=== PATIENT | female | born 1985 | race Two or more races ===

== ENCOUNTER 2025-04-21 15:33 | Emergency (ER) | payer OTHER, MEDICAID ==
--- NOTE | 2025-04-21 16:42 | ED.PDOC ---
History of Present Illness HPI Comments 35-year-old female brought into the emergency department by caregiver from the facility she states it. Patient has a history of epilepsy and seizures. Patient is unable to walk brought in a wheelchair with foam helmet on. Caregiver states that patient has been pushed up the ramp into the facility when she started rolling back and fell back falling back hitting her head. Was not wearing a helmet. No loss of consciousness. They noticed blood in the back of her head. No seizures recently. Chief Complaint: Fall Injury Time Seen by MD: 16:04 Allergies: Coded Allergies: NO KNOWN ALLERGIES (Unverified , 04/21/25) Mode of Arrival: Wheelchair Past Medical History PAST MEDICAL HISTORY: Seizures Constitutional: denies: chills, diaphoresis, fatigue, fever, malaise, sweats, weakness, others EENTM: denies: blurred vision, double vision, ear bleeding, ear discharge, ear drainage, ear pain, ear ringing, eye pain, eye redness, hearing loss, mouth pain, mouth swelling, nasal discharge, nose bleeding, nose congestion, nose pain, photophobia, tearing, throat pain, throat swelling, voice changes, others Respiratory: denies: cough, hemoptysis, orthopnea, SOB at rest, shortness of breath, SOB with excertion, stridor, wheezing, others Cardiovascular: denies: chest pain, dizzy spells, diaphoresis, Dyspnea on exertion, edema, irregular heart beat, left arm pain, lightheadedness, palpitations, PND, syncope, others Gastrointestinal: denies: abdomen distended, abdominal pain, blood streaked bowels, constipated, diarrhea, dysphagia, difficulty swallowing, hematemesis, melena, nausea, poor appetite, poor fluid intake, rectal bleeding, rectal pain, vomiting, others Genitourinary: denies: abnormal vagina bleeding, burning, dyspareunia, dysuria, flank pain, frequency, hematuria, incontinence, pain, , vagina discharge, urgency, others Neurological: denies: dizziness, fainting, headache, left sided numbness, left sided weakness, numbness, paresthesia, pre-existing deficit, right sided numbness, right sided weakness, seizure, speech problems, tingling, tremors, weakness, others Musculoskeletal: denies: back pain, gout, joint pain, joint swelling, muscle pain, muscle stiffness, neck pain, others Integumetry: reports: wounds; denies: bruises, change in color, change in hair/nails, dryness, laceration, lumps, rash, others Physical Exam General Appearance: No Apparent Distress, Normal HEENT: Normal ENT Inspection, Pharynx Normal, TMs Normal Neck: Full Range of Motion, Non-Tender, Normal, Normal Inspection Respiratory: Chest Non-Tender, Lungs Clear, No Accessory Muscle Use, No Respiratory Distress, Normal Breath Sounds Cardiovascular: No Edema, No JVD, No Murmur, No Gallop, Normal Peripheral Pulses, Regular Rate/Rhythm Breast Exam: Deferred Gastrointestinal: No Organomegaly, Non Tender, No Pulsatile Mass, Normal Bowel Sounds, Soft Genitalia: Deferred Pelvic: Deferred Rectal: Deferred Extremities: NOT DONE Musculoskeletal : Location: NOT DONE Apperance: Normal Neurologic: 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 No gapping.) Lymphatic: No Adenopathy Was a procedure done? Was a procedure done?: No Differential Dx Considerations may include: Closed head injury, scalp laceration X-Ray, Labs, Meds, VS Vital Signs Date Time Temp Pulse Resp B/P (MAP) Pulse Ox O2 Delivery O2 Flow Rate FiO2 04/21/25 16:04 98.8 84 18 102/61 (75) 95 98.8 X-Ray, Labs, Meds, VS Comment Wound was cleansed with normal saline. Should heal well with secondary intentions Imaging: X-rays and CT scans were reviewed and interpreted by this provider, imaging shows no fractures and no pathological disease. Pending radiology review. Laboratory: Labs reviewed and interpreted by this provider. No significant abnormalities noted. Patient has prior medical visits reviewed. Med reconciliation performed Vital signs reviewed Time of 1ST Reevaluation: 16:42 Reevaluation 1ST: Improved Patient Education/Counseling: Diagnosis, Treatment, Need For Follow Up (Follow up with PCP next available appointment) Family Education/Counseling: Diagnosis SEPSIS Sepsis Screen Date sepsis recognized/suspect: Apr 21, 2025 Time Sepsis recognized/suspect: 1605 Recent Procedure: No On Antibiotic Therapy: No Respiratory Rate >20: No Heart Rate >90: No Temp<36 C (96.8 F) or >38.3 C: No SBP <90 or MAP <65 mmHG: No New Acute Mental Status Change: No Is the patient on CPAP, BIPAP,: No Physician Orders Head Without Contrast (04/21/25 16:19) Vital Signs Date Time Temp Pulse Resp B/P (MAP) Pulse Ox O2 Delivery O2 Flow Rate FiO2 04/21/25 16:04 98.8 84 18 102/61 (75) 95 98.8 Departure 1 Departure Time of Disposition: 16:42 Impression: Primary Impression: Closed head injury Qualified Codes: S09.90XA - Unspecified injury of head, initial encounter Disposition: 01 HOME / SELF CARE / HOMELESS Condition: Stable Discharged With: Self Critical Care Note Critical Care Time?: No Stability Stability form required: No Heart Score Heart Score: Heart Score Response (Comments) Value History N/A 0 EKG N/A 0 Age N/A 0 Risk Factors N/A 0 Troponin N/A 0 Total 0 NICOLE PARMAR ZOOLOGY TEACHER Apr 21, 2025 16:42
--- NOTE | 2025-04-21 16:53 | DVH ---
EXAM: CT HEAD WITHOUT CONTRAST INDICATION: fall TECHNIQUE: CT of the head without intravenous contrast. Radiation Dose Information: CT Dose: CTDI volume is 59.69 mGy. Dose-length product is 1056.76 mGy*cm The dose indicators for CT are the volume Computed Tomography (CT) Dose Index (CTDIvol) and the Dose Length Product (DLP), and are measured in units of mGy and mGy-cm, respectively. These indicators are not patient dose, but values generated from the CT scanner acquisition factors. The report includes radiation exposure data for exposures received during this examination. COMPARISON: None FINDINGS: There is no evidence of acute intracranial hemorrhage, extra-axial collection, mass effect, midline s hift, herniation or hydrocephalus. The ventricles, sulci and cisterns are age appropriate. The saldaña-white differentiation is intact. Patchy periventricular and subcortical white matter hypoattenuation is nonspecific but may be related to small vessel ischemic disease. The visualized paranasal sinuses and mastoid air cells are clear. Scalp edema posteriorly on the right. No underlying skull fracture or intracranial hemorrhage. IMPRESSION: 1. No acute intracranial abnormality. HS:Y
[2025-04-21 17:30] VITALS: BP 102/61; PULSE 84; RESP 18; TEMP 98.8; O2SAT 95
== END 2025-04-21 17:32 | disposition home or self-care (01) ==
LOC: ER 15:33
DX: S09.8XXA Other specified injuries of head, initial encounter (principal); W18.39XA Other fall on same level, initial encounter; Y93.89 Activity, other specified; Y92.89 Other specified places as the place of occurrence of the external cause; Y99.8 Other external cause status
CPT/HCPCS: 70450

== ENCOUNTER 2025-05-01 12:06 | Emergency (ER) | payer OTHER, MEDICAID ==
[~2025-05-01] VITALS: Ht 167.6 cm; Wt 91.0 kg
--- NOTE | 2025-05-01 12:39 | ED.PDOC ---
Musculoskeletal HPI Comments A 39 YEAR OLD FEMALE PRESENTS TO THE ED WITH COMPLAINT OF LEFT HAND PAIN S/P FALL. PATIENT STATES SHE ACCIDENTALLY FELL TODAY AND INJURED HER LEFT HAND. PATIENT REPORTS SHE IS NOW EXPERIENCING LEFT HAND PAIN WITH MILD SWELLING. PATIENT NOTES SHE HAS A HISTORY OF A DEFORMITY TO HER LEFT FIFTH FINGER DUE TO A PREVIOUS INJURY THAT OCCURRED IN THE PAST. PATIENT DENIES FEVER, CHILLS, SHORTNESS OF BREATH, CHEST PAIN, ABDOMINAL PAIN, NAUSEA, VOMITING, HEADACHE, OR OTHER COMPLAINTS. NO OTHER SYMPTOMS OR MODIFYING FACTORS AT THIS TIME. PATIENT IS ALERT, ORIENTED X 4, AND HAS STEADY GAIT. Chief Complaint: Upper Extremity Time Seen by MD: 12:09 Reviewed Notes: Nurses Notes, Medications, Allergies Allergies: Coded Allergies: NO KNOWN ALLERGIES (Unverified , 04/21/25) Home Meds Active Scripts Ibuprofen (Ibuprofen) 800 Mg Tab, 1 TAB PO TID, #30 TAB Prov:CHANDANA VELARDE 05/01/25 Information Source: Patient Mode of Arrival: Ambulatory Location: Left Extremity Location: Finger 4, Hand Timing: Hours Prehospital treatment: None Severity: Moderate Able to Move Extremity: Yes Bear Weight: Fully Pain: Moderate Mechanism: Blunt Trauma Circumstances: Fall Onset of Symptoms: After Trauma Symptoms: Pain DVT Risk Factors: NONE Last Tetanus: UTD, Unknown Associated signs and symptoms: Hand pain Past Medical History PAST MEDICAL HISTORY: Seizures Surgical History: Denies all surgeries ATOMIC FUEL ASSEMBLER 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: No 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 ATOMIC FUEL ASSEMBLER History Family History Family History: Reviewed,noncontributory to illness Social History Smoker: Non-Smoker Alcohol: Denies ETOH Use Drugs: Denies Drug Use Lives In: Home Constitutional: denies: chills, diaphoresis, fatigue, fever, malaise, sweats, weakness, others EENTM: denies: blurred vision, double vision, ear bleeding, ear discharge, ear drainage, ear pain, ear ringing, eye pain, eye redness, hearing loss, mouth pain, mouth swelling, nasal discharge, nose bleeding, nose congestion, nose pain, photophobia, tearing, throat pain, throat swelling, voice changes, others Respiratory: denies: cough, hemoptysis, orthopnea, SOB at rest, shortness of breath, SOB with excertion, stridor, wheezing, others Cardiovascular: denies: chest pain, dizzy spells, diaphoresis, Dyspnea on exertion, edema, irregular heart beat, left arm pain, lightheadedness, palpitations, PND, syncope, others Gastrointestinal: denies: abdomen distended, abdominal pain, blood streaked bowels, constipated, diarrhea, dysphagia, difficulty swallowing, hematemesis, melena, nausea, poor appetite, poor fluid intake, rectal bleeding, rectal pain, vomiting, others Genitourinary: denies: abnormal vagina bleeding, burning, dyspareunia, dysuria, flank pain, frequency, hematuria, incontinence, pain, , vagina discharge, urgency, others Neurological: denies: dizziness, fainting, headache, left sided numbness, left sided weakness, numbness, paresthesia, pre-existing deficit, right sided numbness, right sided weakness, seizure, speech problems, tingling, tremors, weakness, others Musculoskeletal: reports: joint pain, joint swelling, others (LEFT HAND PAIN); denies: back pain, gout, muscle pain, muscle stiffness, neck pain Integumetry: denies: bruises, change in color, change in hair/nails, dryness, l aceration, lesions, lumps, rash, wounds, others Allergic/Immunocompromised: denies: Difficulty Healing, Frequent Infections, Hives, Itching, others Hematologic/Lymphatic: denies: anemia, blood clots, easy bleeding, easy bruising, swollen glands, others Endocrine: denies: excessive hunger, excessive sweating, excessive thirst, excessive urination, flushing, intolerance to cold, intolerance to heat, unexplained weight gain, unexplained weight loss, others Psychiatric: denies: anxiety, bipolar disorder, depression, hopeless, panic disorder, schizophrenia, sleepless, suicidal, others All Other Systems: Reviewed and Negative Physical Exam General Appearance: No Apparent Distress, Obese HEENT: Normal ENT Inspection, PERRL/EOMI, Pharynx Normal, TMs Normal Neck: Full Range of Motion, Non-Tender, Normal, Normal Inspection Respiratory: Chest Non-Tender, Lungs Clear, No Accessory Muscle Use, No Respiratory Distress, Normal Breath Sounds Cardiovascular: No Edema, No JVD, No Murmur, No Gallop, Normal Peripheral Pulses, Regular Rate/Rhythm Breast Exam: Deferred Gastrointestinal: No Organomegaly, Non Tender, No Pulsatile Mass, Normal Bowel Sounds, Soft Genitalia: Deferred Pelvic: Deferred Rectal: Deferred Extremities: No calf tenderness, Normal capillary refill, Normal range of motion, No pedal edema, Tender (AND MILD SWELLING LEFT 4TH FINGER, NO BONY TENDERNESS AND DEFORMITY, NORMAL ROM. 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 Was a procedure done?: No Differential Diagnosis EXT Differential Diagnosis: Fracture, Sprain, Dislocation, Contusion, Strain, Bursitis X-Ray, Labs, Meds, VS Vital Signs Date Time Temp Pulse Resp B/P (MAP) Pulse Ox O2 Delivery O2 Flow Rate FiO2 05/01/25 13:04 97.5 80 18 111/72 (85) 98 97.5 CLINICAL INDICATION: INJURY TECHNIQUE: 4 radiographic views of the left hand were obtained. Comparison: None FINDINGS/IMPRESSION: There is bony prominence of the palmar base of the 4th digit middle phalanx with subtle linear lucency. Recommend correlation with point tenderness for minimally displaced fracture. Otherwise, no evidence of acute traumatic fractures or dislocations. ATED BY: VANDANA WOODWARD DO DICTATED DATE/TIME: 05/01/251318 SIGNED BY: VANDANA WOODWARD DO SIGNED DATE/TIME: 05/01/251318 CC: X-Ray, Labs, Meds, VS Comment EXTERNAL MEDICAL RECORDS REVIEWED: [NONE] INDEPENDENT HISTORIANS: [NONE] SOCIAL DETERMINANTS OF HEALTH: [NONE] LABS ORDERED: NONE REVIEWED AND INTERPRETED RESULTS: NONE IMAGING ORDERED: XR HAND LT: [INTERPRETED BY ME. NO ACUTE FINDINGS. NO FRACTURES OR DISLOCATION. PENDING RADIOLOGIST REPORT.] TREATMENTS ORDERED: FROG SPLINT APPLIED TO PATIENT'S LEFT 4TH FINGER. PROCEDURES PERFORMED: NONE CRITICAL CARE TIME: NONE I HAVE DISCUSSED THE PATIENT WITH THE ATTENDING PHYSICIAN DR. CUEVAS AND HE AGREES WITH THE PATIENT'S PLAN OF CARE AND DISPOSITION. BASED ON HISTORY OF PRESENT ILLNESS, AND PHYSICAL EXAM, PATIENT WILL BE DISC HARGED HOME. DISCUSSED PLAN FOR DISCHARGE HOME WITH RX [IBUPROFEN 800MG]. MEDICATION WARNINGS GIVEN. SHARED DECISION MAKING: PATIENT INSTRUCTED TO FOLLOW UP WITH PRIMARY CARE PROVIDER IN 1-2 DAYS FOR RE-EVALUATION OF SYMPTOMS. PATIENT VERBALIZES UNDERST ANDING TO RETURN TO ED FOR NEW OR WORSENING SYMPTOMS OR IF FOLLOW UP WITH PCP CANNOT BE OBTAINED. PATIENT FEELS COMFORTABLE GOING HOME AT THIS TIME. ALL QUESTIONS ADDRESSED AT TIME OF DISCHARGE. Images Reviewed?: Images reviewed and evaluated by me Time of 1ST Reevaluation: 13:44 Reevaluation 1ST: Improved Patient Education/Counseling: Diagnosis, Treatment, Need For Follow Up Family Education/Counseling: Diagnosis, Treatment, Need For Follow Up Medical Screening: No EMC Exist At This Time Departure 1 Departure Time of Disposition: 13:44 Impression: Primary Impression: Sprain of left ring finger Qualified Codes: S63.615A - Unspecified sprain of left ring finger, initial encounter Additional Impression: Status post fall Disposition: 01 HOME / SELF CARE / HOMELESS Condition: Stable Additional Instructions: FOLLOW-UP WITH PCP IN 1 TO 2 DAYS. TAKE MEDICATIONS PRESCRIBED. RETURN TO ED FOR ANY NEW OR WORSENING SYMPTOMS. e-Prescriptions Ibuprofen (Ibuprofen) 800 Mg Tab 1 TAB PO TID, #30 TAB Prov: CHANDANA VELARDE 05/01/25 Discharged With: Self, Collection Administrator Critical Care Note Critical Care Time?: No Stability Stability form required: No I personally scribed for CHANDANA VELARDE ([email or web address]) on 05/01/25 at 12:39. Electronically submitted by Francisco Zamora ([employer]). I personally scribed for CHANDANA VELARDE ([email or web address]) on 05/01/25 at 13:27. Electronically submitted by Francisco Zamora ([employer]). I personally scribed for CHANDANA VELARDE ([email or web address]) on 05/01/25 at 13:29. Electronically submitted by Francisco Zamora ([employer]). I personally scribed for CHANDANA VELARDE ([email or web address]) on 05/01/25 at 13:39. Electronically submitted by Francisco Zamora ([employer]). I personally scribed for CHANDANA VELARDE ([email or web address]) on 05/01/25 at 13:41. Electronically submitted by Francisco Zamora ([employer]). CHANDANA VELARDE May 01, 2025 12:39
[2025-05-01 13:04] VITALS: BP 111/72; PULSE 80; RESP 18; TEMP 97.5; O2SAT 98
--- NOTE | 2025-05-01 13:22 | DVH ---
CLINICAL INDICATION: INJURY TECHNIQUE: 4 radiographic views of the left hand were obtained. Comparison: None FINDINGS/IMPRESSION: There is bony prominence of the palmar base of the 4th digit middle phalanx with subtle linear lucenc y. Recommend correlation with point tenderness for minimally displaced fracture. Otherwise, no evid ence of acute traumatic fractures or dislocations.
[2025-05-01] MEDS ORDERED: IBUP-1456 PO (13:41)
== END 2025-05-01 14:13 | disposition home or self-care (01) ==
LOC: ER 12:06
DX: S63.695A Other sprain of left ring finger, initial encounter (principal); W18.39XA Other fall on same level, initial encounter; Y93.89 Activity, other specified; Y92.89 Other specified places as the place of occurrence of the external cause; Y99.8 Other external cause status
CPT/HCPCS: 29130; 73130

== ENCOUNTER 2025-05-07 17:45 | Inpatient (IN) | payer OTHER, MEDICAID ==
[~2025-05-07] VITALS: Ht 157.5 cm; Wt 92.1 kg
[~2025-05-07 17:45] MED LIST: IBUP-1456 PO
--- NOTE | 2025-05-07 19:20 | ED.PDOC ---
HPI (NEURO) HPI Comments 39 year old female with a Hx of Seizures, Bipolar, and Hypothyroidism was BIBA for the c/c of a Seizure. Pt is noted to have experienced 4x witnessed Seizures today at a Psychiatric facility, pt is noted to be wearing a helmet at this time, and is alert and is answering questions appropriately to baseline. Pt is noted to be on multiple different medications for Seizures, including Keppra. Pt denies any HESTER, ABD pain, Photophobia, Dizziness, Blurry Vision, or any other associates symptoms or Modifiers at this time. Chief Complaint: Seizure Time Seen by MD: 19:13 Reviewed Notes: Nurses Notes, President Practicing Urologist Notes, Medications, Allergies Information Source: Patient, Emergency Med Personnel Mode of Arrival: EMS Severity: Moderate Dizziness/Weakness Severity: Does not affect activitie Headache Severity: Mild Timing: Hours Duration: Since onset, Hours Prehospital treatment: None Seizure Quality: Shaking Headache Location: Generalized Weakness Location: Generalized Numbness Location: Generalized Seizure Location: Generalized Onset: At rest Circumstances: Spontaneous Symptoms: None Before: Normal During: Awake After: Normal Mentation History of: None Modifying factors: Nothing Associated Signs and Symptoms: None Past Medical History PAST MEDICAL HISTORY: Seizures Past Medical History (Other): bipolar, hypothyroid Surgical History: Denies all surgeries BRIQUETTE OPERATOR History: No Pertinent BRIQUETTE OPERATOR History Family History Family History: Reviewed,noncontributory to illness Social History Smoker: Non-Smoker Alcohol: Denies ETOH Use Drugs: Denies Drug Use Lives In: Home All Other Systems: Reviewed and Negative (Comprehensive systems review obtained and negative except for what is stated in the HPI.) Physical Exam General Appearance: No Apparent Distress HEENT: Other (Pupils and face symmetric. Moist mucous membranes.) Neck: Full Range of Motion, Non-Tender, Normal Inspection, Supple Respiratory: Lungs Clear, No Accessory Muscle Use, No Respiratory Distress, Normal Breath Sounds Cardiovascular: No Edema, No JVD, Regular Rate/Rhythm Breast Exam: Deferred Gastrointestinal: Non Tender, Soft Genitalia: Deferred Pelvic: Deferred Rectal: Deferred Extremities: Normal inspection, Normal range of motion, Non-tender, No pedal edema Neurologic: Alert, Other (Appropriately conversant. Moves all days. No gross focal deficit.) Cerebellar Function: NOT DONE Reflexes: NOT DONE Skin: Dry, Normal Color, Warm Lymphatic: NOT DONE Was a procedure done? Was a procedure done?: No Differential Diagnosis (SZ) Seizure: Psychogenic Seizure, Alcohol Withdrawl, Closed Head Injury, CVA/TIA, Drug Ingestion, Hypoglycemia, Hyponatremia, Idiopathic, Meningitis, Syncope, Encephalopathy, Epilepsy-Break Through, Epilepsy-Status CVA: Drug Overdose General Weakness: Dehydration, Electrolyte imbalance X-Ray, Labs, Meds, VS Vital Signs Date Time Temp Pulse Resp B/P (MAP) Pulse Ox O2 Delivery O2 Flow Rate FiO2 05/07/25 23:25 Room Air* 0 21 05/07/25 22:30 78 20 101/44 (63) 95 05/07/25 20:30 87 20 92/53 (66) 95 05/07/25 18:30 Room Air* 0 21 05/07/25 18:30 98.0 85 20 118/75 (89) 95 98.0 05/07/25 17:53 98.7 111 16 139/111 98 98.7 Lab Test 05/07/25 22:55 05/07/25 19:13 Range/Units Urine Color Light-yellow Yellow Urine Clarity Clear Clear Urine pH 7.5 5.0-9.0 Urine Specific [place] 1.020 1.001-1.035 Urine Protein Negative Negative Urine Ketones Negative Negative Urine Blood Trace H Negative /uL Urine Nitrite Negative Negative Urine Bilirubin Negative Negative Urine Urobilinogen Normal Negative mg/dL Urine Leukocyte Esterase Negative Negative /uL Urine RBC 2 0 - 4 /hpf Urine Microscopic WBC < 1 0-5 /HPF Urine Squamous Epithelial Cells Few <5 /hpf Urine Bacteria Few H None Seen /hpf Urine Hyaline Casts Few 0 - 2 /lpf Urine Mucus Few None Seen Urine Glucose Normal Normal mg/dL Urine Test Negative Negative White Blood Count 7.9 4.4-10.8 10^3/uL Red Blood Count 4.57 4.0-5.20 10^6/uL Hemoglobin 13.5 12.2-16.2 g/dL Hematocrit 40.3 36.0-46.0 % Mean Corpuscular Volume 88.1 80.0-100.0 fL Mean Corpuscular Hemoglobin 29.5 28.0-32.0 pg Mean Corpuscular Hemoglobin Concent 33.5 32.0-36.0 g/dL Red Cell Distribution Width 15.2 H 11.8-14.3 % Platelet Count 201 140-450 10^3/uL Mean Platelet Volume 8.1 6.9-10.8 fL Neutrophils (%) (Auto) 68.8 37.0-80.0 % Lymphocytes (%) (Auto) 23.2 10.0-50.0 % Monocytes (%) (Auto) 7.7 0.0-12.0 % Eosinophils (%) (Auto) 0.0 0.0-7.0 % Basophils (%) (Auto) 0.3 0.0-2.0 % Neutrophils # (Auto) 5.4 1.6-8.6 10 ^3/uL Lymphocytes # (Auto) 1.8 0.4-5.4 10 ^3/uL Monocytes # (Auto) 0.6 0-1.3 10 ^3/uL Eosinophils # (Auto) 0 0-0.8 10 ^3/uL Basophils # (Auto) 0 0-0.2 10 ^3/uL Nucleated Red Blood Cells 0.1 % Sodium Level 142 136-145 mmol/L Potassium Level 3.7 3.5-5.1 mmol/L Chloride Level 106 98-107 mmol/L Carbon Dioxide Level 27 20-31 mmol/L Anion Gap 9 5-15 Blood Urea Nitrogen 13 9-23 mg/dL Creatinine 0.69 0.550-1.02 mg/dL Glomerular Filtration Rate Calc 113 >90 mL/min BUN/Creatinine Ratio 18.8 10.0-20.0 Serum Glucose 107 H 74-106 mg/dL Calcium Level 9.3 8.7-10.4 mg/dL Levetiracetam Level Pending X-Ray, Labs, Meds, VS Comment 39-year-old female with a history of epilepsy on multiple antiseizure meds including levetiracetam, hypothyroidism and bipolar disorder presenting from her facility with 4 seizures today Initial vitals remarkable for heart rate 111, BP 139/111 Exam unremarkable Rhythm strip independently interpreted by me: Sinus rhythm, rate 85, no ectopy. Chest x-ray pending CBC and basic metabolic panel unremarkable, levetiracetam level and UA pending Patient was placed on seizure precautions. No immediate treatment was indicated in the ED. Plan is to admit the patient for neurology evaluation. Time of 1ST Reevaluation: 19:44 Reevaluation 1ST: Unchanged Patient Education/Counseling: Diagnosis, Treatment Family Education/Counseling: No Family Present Departure 1 Departure Time of Disposition: 21:30 Impression: Primary Impression: Breakthrough seizure Disposition: ADMITTED INPATIENT Admit to: Tele Condition: Guarded Critical Care Note Critical Care Time?: No Stability Stability form required: No Heart Score Heart Score: Heart Score Response (Comments) Value History N/A 0 EKG N/A 0 Age N/A 0 Risk Factors N/A 0 Troponin N/A 0 Total 0 I personally scribed for BOB ADKINS MD ([email or web address]) on 05/07/25 at 19:20. Electronically submitted by Payam Delacruz ([email or web address]). BOB ADKINS MD May 07, 2025 19:20
[2025-05-07 19:35] LABS: Hematocrit 40.3 % (36.0-46.0); Hemoglobin 13.5 g/dL (12.2-16.2); Mean Corpuscular Hemoglobin 29.5 pg (28.0-32.0); Mean Corpuscular Volume 88.1 fL (80.0-100.0); Nucleated Red Blood Cells % 0.1 %
[2025-05-07 19:39] LABS: Chloride 106 mmol/L (98-107); Potassium 3.7 mmol/L (3.5-5.1); Sodium 142 mmol/L (136-145)
[2025-05-07 19:40] LABS: Anion Gap 9 (5-15); Carbon Dioxide 27 mmol/L (20-31)
[2025-05-07 19:41] LABS: Calcium 9.3 mg/dL (8.7-10.4)
[2025-05-07 19:46] LABS: Glucose 107 mg/dL (74-106)
[2025-05-07 20:08] LABS: BUN/Creatinine Ratio 18.8 (10.0-20.0); Blood Urea Nitrogen 13 mg/dL (9-23)
[2025-05-07] MEDS ORDERED: HYDROcodone-ACET 5/325MG TAB PO PRN (21:30)
[2025-05-07] MEDS ORDERED: ACETAMINOPHEN 325 MG TAB PO PRN (21:30)
[2025-05-07] MEDS ORDERED: ONDANSETRON HCL 4 MG/2 ML VIAL IV PRN (21:30)
[2025-05-07] MEDS ORDERED: DOCUSATE SOD 100 MG CAP PO PRN (21:30)
[2025-05-07 23:34] LABS: Urine Protein, UAD Negative (Negative)
--- NOTE | 2025-05-07 23:34 | DVHHP2 ---
History of Present Illness Reason for Visit: Seizure disorder History of Present Illness The patient is a 39 years old female with past medical history of seizures, bipolar disorder, and hypothyroidism who presented to [facility] ED for evaluation of seizures activity. Patient is noted to have experience witnessed seizure today at a psychiatric facility, associated with dizziness. Patient was seen and evaluated in the ED, laboratory data shows WBC 7.9, platelets 201, sodium 142, potassium 3.7, BUN 13, creatinine 0.69, glucose 107, calcium 9.3, blood pressure 118/75, heart rate 85, temperature 98.0 F, O2 saturation 95% on room air. Chest x-ray show no acute cardiopulmonary disease. Patient was started on IV Keppra, please see medication orders section in the computer. On my assessment, patient denied chest pain, no headache, no dizziness or seizures activities at this moment, no blurry vision, no diaphoresis, no shortness of breath, no nausea, no vomiting, no fever, no chills. Patient was admitted for further evaluation and medical management. Past Medical History Seizures, Bipolar, Hypothyroid Past Surgical History VNS shunt Family History Reviewed, noncontributory to the management of this case. Past Social History The patient lives at home, denies smoking, alcohol or illicit drugs abuse. Review of Systems Constitutional: No: Fever, Chills, Sweats, Weakness, Malaise, Other Eyes: No: Pain, Vision change, Conjunctivae inflammation, Eyelid inflammation, Other, Redness ENT: No: Ear pain, Ear discharge, Nose pain, Nose discharge, Nose congestion, Mouth pain, Mouth swelling, Throat pain, Throat swelling, Other Respiratory: No: Cough, Dry, Shortness of breath, SOB with excertion, Wheezing, Hemoptysis, Pleuritic Pain, Sputum, Wheezing, Other Cardiovascular: Other (VNS shunt); No: Chest Pain, Palpitations, Orthopnea, Paroxysmal Noc. Dyspnea, Edema, Lt Headedness Gastrointestinal: No: Nausea, Vomiting, Abdominal Pain, Diarrhea, Constipation, Melena, Hematochezia, Other Genitourinary: No Dysuria, No Frequency, No Incontinence, No Hematuria, No Retention, No Other Musculoskeletal: No: other, neck pain, shoulder pain, arm pain, back pain, hand pain, leg pain, foot pain Neurological: Seizures, Other (Dizziness); No: Weakness, Numbness, Incoordination, Change in speech, Confusion Allergies: Coded Allergies: NO KNOWN ALLERGIES (Unverified , 04/21/25) Medications Current Medications Medications Dose Ordered Sig/Chayo Route Start Time Stop Time Status Last Admin Dose Admin Levetiracetam 100 ml @ 400 mls/hr BID IV 05/07/25 22:00 Levothyroxine Sodium 75 mcg QAM@0600 PO 05/08/25 06:00 Sertraline HCl 100 mg DAILY PO 05/08/25 10:00 Trazodone HCl 100 mg HS PO 05/07/25 22:00 Sodium Chloride 1,000 ml @ 60 mls/hr [id number] IV 05/07/25 21:30 Acetaminophen/ Hydrocodone Bitart 1 tab Q4HP PRN PO 05/07/25 21:30 Ondansetron HCl 4 mg Q4HP PRN IV 05/07/25 21:30 Docusate Sodium 100 mg BIDPRN PRN PO 05/07/25 21:30 Acetaminophen 650 mg Q6HP PRN PO 05/07/25 21:30 Exam Vital Signs Vital Signs Date Time Temp Pulse Resp B/P (MAP) Pulse Ox O2 Delivery O2 Flow Rate FiO2 05/07/25 22:30 78 20 101/44 (63) 95 05/07/25 18:30 Room Air* 0 21 05/07/25 18:30 98.0 98.0 General Appearance: Alert, Oriented X3, Cooperative, No acute distress HEENT: Atraumatic, PERRLA, Mucous membr. moist/pink Respiratory: Normal air movement Cardiovascular: Regular rate, Normal S1, Normal S2, No murmurs Abdominal: Normal bowel sounds, Soft, No tenderness, No hepatospenomegaly, No masses Extremities: No clubbing, No cyanosis, No edema, Normal pulses, No te nderness/swelling Skin: No rashes, No breakdown, No significant lesion Neuro: Normal speech, Normal tone, Sensation intact, Cranial nerves 3-12 NL, Reflexes 2+ Psych/Mental Status: Mental status NL, Mood NL Labs/Xrays Labs Test 05/07/25 22:55 05/07/25 19:13 Range/Units Urine Test Negative Negative White Blood Count 7.9 4.4-10.8 10^3/uL Red Blood Count 4.57 4.0-5.20 10^6/uL Hemoglobin 13.5 12.2-16.2 g/dL Hematocrit 40.3 36.0-46.0 % Mean Corpuscular Volume 88.1 80.0-100.0 fL Mean Corpuscular Hemoglobin 29.5 28.0-32.0 pg Mean Corpuscular Hemoglobin Concent 33.5 32.0-36.0 g/dL Red Cell Distribution Width 15.2 H 11.8-14.3 % Platelet Count 201 140-450 10^3/uL Mean Platelet Volume 8.1 6.9-10.8 fL Neutrophils (%) (Auto) 68.8 37.0-80.0 % Lymphocytes (%) (Auto) 23.2 10.0-50.0 % Monocytes (%) (Auto) 7.7 0.0-12.0 % Eosinophils (%) (Auto) 0.0 0.0-7.0 % Basophils (%) (Auto) 0.3 0.0-2.0 % Neutrophils # (Auto) 5.4 1.6-8.6 10 ^3/uL Lymphocytes # (Auto) 1.8 0.4-5.4 10 ^3/uL Monocytes # (Auto) 0.6 0-1.3 10 ^3/uL Eosinophils # (Auto) 0 0-0.8 10 ^3/uL Basophils # (Auto) 0 0-0.2 10 ^3/uL Nucleated Red Blood Cells 0.1 % Sodium Level 142 136-145 mmol/L Potassium Level 3.7 3.5-5.1 mmol/L Chloride Level 106 98-107 mmol/L Carbon Dioxide Level 27 20-31 mmol/L Anion Gap 9 5-15 Blood Urea Nitrogen 13 9-23 mg/dL Creatinine 0.69 0.550-1.02 mg/dL Glomerular Filtration Rate Calc 113 >90 mL/min BUN/Creatinine Ratio 18.8 10.0-20.0 Serum Glucose 107 H 74-106 mg/dL Calcium Level 9.3 8.7-10.4 mg/dL PATIENT: HERLINDA WHEAT ACCT: [id number] UNIT: [id number] : 1985 LOC: OVERFLOW ROOM / BED: [id number] A AGE / SEX: 39 / F ADM STATUS: ADM IN SERVICE 00 ORDERING PHYSICIAN: BOB ADKINS MD PROCEDURE(s): CXR1 - CHEST XRAY 1 VIEW REASON: seizures ORDER NUMBER(s): [id number], ACCESSION NUMBER(s): [id number] CHEST RADIOGRAPH Indication: seizures Technique: Single frontal view of the chest was obtained Comparison: None FINDINGS: Lines and Tubes: Left implanted battery pack with lead coursing superiorly to the left neck. Lungs: No focal consolidation. Pleura: No effusion or pneumothorax. Cardiomediastinal contours: Unremarkable Bones: No acute osseous abnormality. IMPRESSION: 1. No acute cardiopulmonary disease. SEPSIS Sepsis Screen Date sepsis recognized/suspect: May 07, 2025 Time Sepsis recognized/suspect: 1749 Recent Procedure: No On Antibiotic Therapy: No Respiratory Rate >20: No Heart Rate >90: Yes Temp<36 C (96.8 F) or >38.3 C: No SBP <90 or MAP <65 mmHG: No New Acute Mental Status Change: No Is the patient on CPAP, BIPAP,: No Physician Orders Urinalysis (05/07/25 18:33) Electrocardigram (05/07/25 18:33) Seizure Precautions (05/07/25 ) Chest Xray 1 View (05/07/25 19:01) Levetiracetam (Keppra) (05/07/25 19:02) Levetiracetam 1000 Mg/100ml (Levetiracet (05/07/25 22:00) Levothyroxine Tablet (Synthroid Tablet) (05/08/25 06:00) Sertraline Hcl (Zoloft) (05/08/25 10:00) Trazodone Hcl (Desyrel) (05/07/25 22:00) Allergies (05/07/25 21:21) Code Status (05/07/25 21:21) Sodium Chloride 0.9% (05/07/25 21:30) Oxygen Per Hour (05/07/25 21:21) Hydrocodone-Acet 5/325mg Tab ([place] 5/32 (05/07/25 21:30) Ondansetron Hcl (Zofran) (05/07/25 21:30) Docusate Sodium Capsule (Colace Capsule) (05/07/25 21:30) Fall Risk Precautions In Place QSHIFT (05/07/25 21:21) Complete Blood Count (05/08/25 04:00) Comprehensive Metabolic Panel (05/08/25 04:00) Condition: Serious (05/07/25 21:21) Acetaminophen Tablet (Tylenol Tablet) (05/07/25 21:30) Maintain Bed Rest (05/07/25 21:21) Sequential Compression Device (05/07/25 ) Cardiac Diet-2gna,Lofat,Lochol (05/08/25 Breakfast) Admit (05/07/25 23:32) Nitroglycerin Sublingual (Ntrostat Subli (05/07/25 23:45) Morphine Sulfate Injection (05/07/25 23:45) Stat Ekg For Chest Pain (05/07/25 23:32) Notify Md Of Changes From Base (05/07/25 23:32) Pathologist For 24 Hours (05/07/25 23:32) Emergency Dysrhythmia Protocol (05/07/25 23:32) Rhythm Strips Once Every Shift (05/07/25 23:32) Oxygen By Nasal Cannula (05/07/25 23:32) Vital Signs Date Time Temp Pulse Resp B/P (MAP) Pulse Ox O2 Delivery O2 Flow Rate FiO2 05/07/25 22:30 78 20 101/44 (63) 95 05/07/25 20:30 87 20 92/53 (66) 95 05/07/25 18:30 Room Air* 0 21 05/07/25 18:30 98.0 85 20 118/75 (89) 95 98.0 05/07/25 17:53 98.7 111 16 139/111 98 98.7 Laboratory Tests Test 05/07/25 19:13 White Blood Count 7.9 10^3/uL (4.4-10.8) Assessment/Plan Assessment/Plan Breakthrough seizure Dizziness and giddiness Generalized weakness Plan 1. Admit to telemetry unit 2. Breathing treatment 3. Pain control management 4. Management of fluids and electrolytes 5. Consultation for Neurology 6. Diagnostic tests head CT 7. DVT prophylaxis on SCDs 8. Repeat labs CBC, CMP in a.m. 9. Continue with current medical management 10. Treatment plan discussed with patient and RN. Patient verbalized understanding. Plan discussed with: Patient, Other (RN) My Orders Orders - GERALDO OSORIO DNP Procedure Category Date Status Time Levetiracetam 1000 PHA 05/07/25 In Process Mg/100ml (Levetiracet 22:00 Levothyroxine Tablet PHA 05/08/25 In Process (Synthroid Tablet) 06:00 Sertraline Hcl PHA 05/08/25 In Process (Zoloft) 10:00 Trazodone Hcl PHA 05/07/25 In Process (Desyrel) 22:00 Allergies SPENCER 05/07/25 In Process 21:21 Code Status CODE 05/07/25 Transmitted 21:21 Sodium Chloride 0.9% PHA 05/07/25 In Process 21:30 Oxygen Per Hour RT 05/07/25 Transmitted 21:21 Hydrocodone-Acet PHA 05/07/25 In Process 5/325mg Tab ([place]on 21:30 Ondansetron Hcl PHA 05/07/25 In Process (Zofran) 21:30 Docusate Sodium PHA 05/07/25 In Process Capsule (Colace 21:30 Fall Risk Precautions SPENCER 05/07/[address] 21:21 Complete Blood Count LAB 05/08/25 Verified 04:00 Comprehensive LAB 05/08/25 Verified Metabolic Panel 04:00 Condition: Serious SPENCER 05/07/25 In Process 21:21 Acetaminophen Tablet PHA 05/07/25 In Process (Tylenol Tablet) 21:30 Maintain Bed Rest SPENCER 05/07/25 In Process 21:21 Sequential SPENCER 05/07/25 In Process Compression Device Cardiac DIET 05/08/25 Transmitted Diet-2gna,Lofat,Lochol Breakfast Admit ADMIT 05/07/25 Verified 23:32 Nitroglycerin [facility] 05/07/25 Verified Sublingual (Ntrostat 23:45 Morphine Sulfate PHA 05/07/25 Verified Injection 23:45 Stat Ekg For Chest [facility] 05/07/25 Verified Pain 23:32 Notify Md Of Changes [facility] 05/07/25 Verified From Base 23:32 Pathologist For [facility] 05/07/25 Verified 24 Hours 23:32 Emergency Dysrhythmia [facility] 05/07/25 Verified Protocol 23:32 Rhythm Strips Once [facility] 05/07/25 Verified Every Shift 23:32 Oxygen By Nasal RT 05/07/25 Verified Cannula 23:32 Problem List: (1) Breakthrough seizure (2) Dizziness and giddiness (3) Generalized weakness Date of Service: May 07, 2025 Billing Provider: GERALDO OSORIO DNP Common Visit Codes: [id number] INP/OBS CARE (HIGH) GERALDO OSORIO DNP May 07, 2025 23:34
[2025-05-07] MEDS ORDERED: MORPHINE SULFATE INJ 2 MG/ml SYRG IV PRN (23:45)
[2025-05-07] MEDS ORDERED: NITROGLYCERIN 0.4 MG SL TAB SL PRN (23:45)
--- NOTE | 2025-05-08 00:07 | DVH ---
CHEST RADIOGRAPH Indication: seizures Technique: Single frontal view of the chest was obtained Comparison: None FINDINGS: Lines and Tubes: Left implanted battery pack with lead coursing superiorly to the left neck. Lungs: No focal consolidation. Pleura: No effusion or pneumothorax. Cardiomediastinal contours: Unremarkable Bones: No acute osseous abnormality. IMPRESSION: 1. No acute cardiopulmonary disease.
[2025-05-08] MEDS: SODIUM CHLORIDE 0.9% 1,000 ML IV SCH (02:03)
[2025-05-08] MEDS: levETIRAcetam 1000 mg/100ml 100 ML IV SCH (02:03)
[2025-05-08 04:47] LABS: Hematocrit 39.9 % (36.0-46.0); Hemoglobin 13.3 g/dL (12.2-16.2); Mean Corpuscular Hemoglobin 29.6 pg (28.0-32.0); Mean Corpuscular Volume 88.8 fL (80.0-100.0); Nucleated Red Blood Cells % 0.1 %
[2025-05-08 05:03] LABS: Alanine Aminotransferase 15 U/L (7-40); Albumin 4.0 g/dL (3.2-4.8); Alkaline Phosphatase 98 U/L (46-116); Anion Gap 9 (5-15); BUN/Creatinine Ratio 15.9 (10.0-20.0); Blood Urea Nitrogen 11 mg/dL (9-23); Calcium 8.9 mg/dL (8.7-10.4); Carbon Dioxide 24 mmol/L (20-31); Glucose 83 mg/dL (74-106); Sodium 141 mmol/L (136-145); Total Protein 6.9 g/dL (5.7-8.2)
[2025-05-08 05:04] LABS: Bilirubin, Total 0.3 mg/dL (0.2-1.0)
[2025-05-08 05:08] LABS: Chloride 108 mmol/L (98-107); Potassium 3.4 mmol/L (3.5-5.1)
[2025-05-08] MEDS: LEVOTHYROXINE SODIUM 25 MCG TAB PO SCH (06:43)
[2025-05-08 07:20] VITALS: PULSE 82; RESP 16; O2SAT 95
[2025-05-08] MEDS: SERTRALINE HCL 50 MG TAB PO SCH (10:00)
--- NOTE | 2025-05-08 15:13 | DVHPN2 ---
Subjective Cross covering for [facility] group today. Patient's chart is reviewed and seen and evaluated. Remained seizure-free since admission. Patient apparently lives in a alf. She tells me she takes valproic acid, Vimpat and Keppra and medications are administered by personal at the alf. She does not remember if she has skipped any doses. Otherwise denies any complaints at present. Changes from previous H/P or p: No Changes Eyes: No Pain, No Vision change, No Conjunctivae inflammation, No Eyelid inflammation, No Other, No Redness ENT: No Ear pain, No Ear discharge, No Nose pain, No Nose discharge, No Nose congestion, No Mouth pain, No Mouth swelling, No Throat pain, No Throat swelling, No Other Cardiovascular: No Chest Pain, No Palpitations, No Orthopnea, No Paroxysmal Noc. Dyspnea, No Edema, No Lt Headedness; Other (VNS shunt) Respiratory: No Cough, No Dry, No Shortness of breath, No SOB with excertion, No Wheezing, No Hemoptysis, No Pleuritic Pain, No Sputum, No Other Gastrointestinal: No Nausea, No Vomiting, No Abdominal Pain, No Diarrhea, No Constipation, No Melena, No Hematochezia, No Other Genitourinary: No Dysuria, No Frequency, No Incontinence, No Hematuria, No Retention, No Other Musculoskeletal: No other, No neck pain, No shoulder pain, No arm pain, No back pain, No hand pain, No leg pain, No foot pain Objective Vitals Vital Signs Date Time Temp Pulse Resp B/P (MAP) Pulse Ox O2 Delivery O2 Flow Rate FiO2 05/08/25 14:20 77 16 93/59 (70) 97 05/08/25 07:20 Room Air* 0 21 05/08/25 07:20 97.8 97.8 Intake/Output Intake and Output 05/08/25 07:00 Intake Total 100 ml Balance 100 ml Intake IV Total 100 ml Exam Alert awake oriented x3. HEENT pupils equal round react to light. Neck supple no JVD. Heart regular rate and rhythm S1-S2. Lungs fair air movement without rales wheezes. Abdomen obese soft nontender positive bowel sounds. Extremities no edema positive pulses. Neurologic. No focal deficits. Medications Current Medications Medications Dose Ordered Sig/Chayo Route Start Time Stop Time Status Last Admin Dose Admin Levetiracetam 100 ml @ 400 mls/hr BID IV 05/07/25 22:00 05/08/25 10:00 400 MLS/HR Levothyroxine Sodium 75 mcg QAM@0600 PO 05/08/25 06:00 05/08/25 06:43 75 MCG Sertraline HCl 100 mg DAILY PO 05/08/25 10:00 05/08/25 10:00 100 MG Trazodone HCl 100 mg HS PO 05/07/25 22:00 05/08/25 00:22 100 MG Sodium Chloride 1,000 ml @ 60 mls/hr [id number] IV 05/07/25 21:30 05/08/25 14:10 60 MLS/HR Acetaminophen/ Hydrocodone Bitart 1 tab Q4HP PRN PO 05/07/25 21:30 Ondansetron HCl 4 mg Q4HP PRN IV 05/07/25 21:30 Docusate Sodium 100 mg BIDPRN PRN PO 05/07/25 21:30 Acetaminophen 650 mg Q6HP PRN PO 05/07/25 21:30 Nitroglycerin 0.4 mg Q5MINP PRN SL 05/07/25 23:45 Morphine Sulfate 2 mg Q30M PRN IV 05/07/25 23:45 Lorazepam 1 mg Q2HP PRN IV 05/08/25 02:30 Laboratory Results Laboratory Tests 05/08/25 04:30 Chemistry Test 05/07/25 19:13 05/08/25 04:30 Calcium Level 9.3 mg/dL (8.7-10.4) 8.9 mg/dL (8.7-10.4) Albumin 4.0 g/dL (3.2-4.8) Total Protein 6.9 g/dL (5.7-8.2) LFT Test 05/08/25 04:30 Alanine Aminotransferase (ALT) 15 U/L (7-40) Alkaline Phosphatase 98 U/L (46-116) Aspartate Amino Transferase (AST) 21 U/L (13-40) Total Bilirubin 0.3 mg/dL (0.2-1.0) Urinalysis Test 05/07/25 22:55 Urine Color Light-yellow (Yellow) Urine Clarity Clear (Clear) Urine pH 7.5 (5.0-9.0) Urine Specific [place] 1.020 (1.001-1.035) Urine Protein Negative (Negative) Urine Ketones Negative (Negative) Urine Blood Trace /uL (Negative) H Urine Nitrite Negative (Negative) Urine Bilirubin Negative (Negative) Urine Urobilinogen Normal mg/dL (Negative) Urine Leukocyte Esterase Negative /uL (Negative) Urine RBC 2 /hpf (0 - 4) Urine Microscopic WBC < 1 /HPF (0-5) Urine Squamous Epithelial Cells Few /hpf (<5) Urine Bacteria Few /hpf (None Seen) H Urine Hyaline Casts Few /lpf (0 - 2) Urine Mucus Few (None Seen) Urine Glucose Normal mg/dL (Normal) Urine Test Negative (Negative) Labs and/or images reviewed: Labs reviewed by me Assessment/Plan Assessment/Plan At present remained seizure-free. Her urinalysis negative for infection. It is unclear if there is any noncompliance with medications. I will resume her Depakote and continue IV Keppra overnight. If she remains seizure-free consider discharge home tomorrow. Patient is asking if she can go home tonight versus tomorrow back to alf. Discussed with her regarding care plan. Plan discussed with: Patient My Orders Orders - AVELINO CONN MD Procedure Category Date Status Time Divalproex Dr Tablet PHA 05/08/25 Verified (Depakote "Dr" Tabl 22:00 * Neurology Consult CONS 05/08/25 Verified 15:08 * Capacity Analyst CONS 05/08/25 Verified Consult Problem List: (1) Breakthrough seizure (2) Generalized weakness Date of Service: May 08, 2025 Billing Provider: AVELINO CONN MD Common Visit Codes: [id number] INP/OBS CARE(MOD) AVELINO CONN MD May 08, 2025 15:13
[2025-05-08 16:00] VITALS: BP 102/73; PULSE 74; RESP 18; TEMP 97.1; O2SAT 97
[2025-05-08 17:00] VITALS: BP 102/73; PULSE 74; RESP 18; TEMP 97.1; O2SAT 97
[2025-05-08 20:00] VITALS: PULSE 76; RESP 16
[2025-05-08 21:00] VITALS: BP 104/73; PULSE 74; RESP 17; TEMP 97.6; O2SAT 95
[2025-05-09] VITALS (8 sets, daily range): BP systolic 92–119; BP diastolic 55–80; PULSE 67–99; RESP 17–21; TEMP 97.2–98.6; O2SAT 94–99
[2025-05-09] MEDS: LORazepam 2MG/ML-1ML VIAL IV PRN (00:55)
[2025-05-09] MEDS: LACOSAMIDE 50 MG TAB PO ONE (12:39)
--- NOTE | 2025-05-09 17:10 | DVHINCON2 ---
Date of service: May 09, [address] Brennan Reason for Consultation Seizure History of Present Illness Ms. Rivas is a 39 years old right-handed female with a history of seizure disorder, bipolar disorder, hypothyroidism, she was brought to the [facility] on 05/07/2025 with a chief complaint of seizure activity. At this time, she is alert, fully oriented, she provided the following history. I have reviewed paperwork she came with. I have also interviewed her nurse and sitter She has a seizure disorder since age of [age], according to her sitter, the seizure was a spells event where she had shaking in the upper portion of body, arms, eyes spacing out, lasts for about 20 sec, and she woke up right after it was over. She has had five events today with company amnesia She claimed she has seizure activity everything in the day, then she remembers some them in that she was shaking all over the body Twice because of seizure activity, the patient was comatose, intubated She has had fall and scalp laceration secondary to seizure activity, and she wears a helmet She saw a neurologist previously, but she does not remember the etiology of her seizure he does not remember her seizure medications, according to her paperwork, she is on the following medications: Keppra 1500 mg b.i.d., Vimpat 200 mg b.i.d., Depakote 500 mg b.i.d.(seizure), Fycompa 12 mg daily, zonisamide 25 mg daily, lamotrigine 25 mg daily (bipolar) He denies a history of head trauma, intracranial infection, family history of seizure disorder prior the age of [age] Urinalysis, 05/07/2025: WBC: One, urine leukocyte esterase: Negative CBC, 05/08/2025: Unremarkable CMP, 05/08/2025: Unremarkable CT head, 04/21/2025: No acute intracranial abnormality. Past Medical History Bipolar disorder, hypothyroidism, seizure Past Surgical History Multiple surgeries in both lower extremities for fracture Family History: FH: lung cancer G8 FATHER Thyroid disease G8 MOTHER Family History Thyroid disorder, obesity, lung disorder Social History She denies history of tobacco smoking, drug/alcohol abuse. She does not drive Allergies: Coded Allergies: NO KNOWN ALLERGIES (Unverified , 04/21/25) Home Meds Active Scripts Ibuprofen (Ibuprofen) 800 Mg Tab, 1 TAB PO TID, #30 TAB Prov:CHANDANA VELARDE FAHEEM 05/01/25 Current Medications Current Medications Medications (Trade) Dose Ordered Sig/Chayo Route PRN Reason Start Time Stop Time Status Last Admin Divalproex Sodium (Depakote "Dr" Tablet) 250 mg BID PO 05/08/25 22:00 05/09/25 11:45 DC 05/09/25 10:40 Divalproex Sodium (Depakote "Dr" Tablet) 500 mg BID PO 05/09/25 22:00 Lacosamide (Vimpat) 200 mg BID PO 05/09/25 22:00 Review of Systems As above, the other systems are negative Vital Signs Vital Signs Date Time Temp Pulse Resp B/P (MAP) Pulse Ox O2 Delivery O2 Flow Rate FiO2 05/09/25 12:59 98.6 67 21 119/80 (93) 97 98.6 05/09/25 08:00 Nasal Cannula* 2 28 Physical Exam GENERAL EXAM: General: the patient is well developed and nourished. No acute distress. HEENT: Normocephalic, neck is supple, no carotid bruits. No mass. RESPIRATORY: Normal respiratory effort with symmetrical lung expansion. Lungs clear to auscultation. CARDIOVASCULAR: Regular rate and rhythm with no murmurs. S1, S2. ABDOMEN: Soft, nontender, normal bowel sound MUSCULOSKELETAL EXAM: No pain in the knees NEUROLOGICAL: MENTAL STATUS: Awake and alert. Oriented to person, place, time and general circumstances. Able to give personal history. SPEECH, LANGUAGE, HIGHER CORTICAL FUNCTION: no aphasia or dysathria. CRANIAL NERVES: #2: Intact visual jiménez to confrontation. The optic discs were sharp. #3,4,6: Pupils are equal, round and reactive. EOMs full and conjugate. No nystagmus. #5: Facial sensation intact in all three divisions bilaterally. Mandibular strength intact. #7: Facial muscles symmetrical and strength intact. #8: Hearing grossly normal to voice. #9,10: Uvula and soft palate rise in the midline. Swallow and voice are normal. #11: Trapezius and sternomastoid strength intact bilaterally. #12: Tongue midline. No fasciculations or atrophy. SENSATION: Sensation to touch and pinprick is normal. MOTOR: Normal tone in the upper and lower extremity. Normal muscle bulk. No fasciculations. No abnormal movements or posturing. Muscle strength of the major groups in the upper extremities is 5/5. Muscle strength of the major groups in the lower extremities is 5/5. REFLEXES: Deep tendon reflexes normal and symmetrical. No pathological reflexes. CEREBELLAR/COORDINATION: Finger to nose is normal bilaterally. GAIT/STATION: deferred. Labs/Diagnostic Data Labs Test 05/08/25 04:30 05/07/25 22:55 05/07/25 19:13 Range/Units White Blood Count 8.0 4.4-10.8 10^3/uL Red Blood Count 4.50 4.0-5.20 10^6/uL Hemoglobin 13.3 12.2-16.2 g/dL Hematocrit 39.9 36.0-46.0 % Mean Corpuscular Volume 88.8 80.0-100.0 fL Mean Corpuscular Hemoglobin 29.6 28.0-32.0 pg Mean Corpuscular Hemoglobin Concent 33.3 32.0-36.0 g/dL Red Cell Distribution Width 14.9 H 11.8-14.3 % Platelet Count 195 140-450 10^3/uL Mean Platelet Volume 7.9 6.9-10.8 fL Neutrophils (%) (Auto) 51.0 37.0-80.0 % Lymphocytes (%) (Auto) 41.1 10.0-50.0 % Monocytes (%) (Auto) 7.6 0.0-12.0 % Eosinophils (%) (Auto) 0.1 0.0-7.0 % Basophils (%) (Auto) 0.2 0.0-2.0 % Neutrophils # (Auto) 4.1 1.6-8.6 10 ^3/uL Lymphocytes # (Auto) 3.3 0.4-5.4 10 ^3/uL Monocytes # (Auto) 0.6 0-1.3 10 ^3/uL Eosinophils # (Auto) 0 0-0.8 10 ^3/uL Basophils # (Auto) 0 0-0.2 10 ^3/uL Nucleated Red Blood Cells 0.1 % Sodium Level 141 136-145 mmol/L Potassium Level 3.4 L 3.5-5.1 mmol/L Chloride Level 108 H 98-107 mmol/L Carbon Dioxide Level 24 20-31 mmol/L Anion Gap 9 5-15 Blood Urea Nitrogen 11 9-23 mg/dL Creatinine 0.69 0.550-1.02 mg/dL Glomerular Filtration Rate Calc 113 >90 mL/min BUN/Creatinine Ratio 15.9 10.0-20.0 Serum Glucose 83 74-106 mg/dL Calcium Level 8.9 8.7-10.4 mg/dL Total Bilirubin 0.3 0.2-1.0 mg/dL Aspartate Amino Transferase (AST) 21 13-40 U/L Alanine Aminotransferase (ALT) 15 7-40 U/L Alkaline Phosphatase 98 46-116 U/L Total Protein 6.9 5.7-8.2 g/dL Albumin 4.0 3.2-4.8 g/dL Urine Color Light-yellow Yellow Urine Clarity Clear Clear Urine pH 7.5 5.0-9.0 Urine Specific [place] 1.020 1.001-1.035 Urine Protein Negative Negative Urine Ketones Negative Negative Urine Blood Trace H Negative /uL Urine Nitrite Negative Negative Urine Bilirubin Negative Negative Urine Urobilinogen Normal Negative mg/dL Urine Leukocyte Esterase Negative Negative /uL Urine RBC 2 0 - 4 /hpf Urine Microscopic WBC < 1 0-5 /HPF Urine Squamous Epithelial Cells Few <5 /hpf Urine Bacteria Few H None Seen /hpf Urine Hyaline Casts Few 0 - 2 /lpf Urine Mucus Few None Seen Urine Glucose Normal Normal mg/dL Urine Test Negative Negative Assessment This is a long consultation Grand mal seizure Status epileptics Psychogenic seizure, some her seizure attacks could be psychogenic Plan/Recommendation Monitoring Supportive treatment Telemetry EEG Keppra 1500 mg b.i.d., Vimpat 200 mg b.i.d., Depakote 500 mg b.i.d.(seizure), Fycompa 12 mg daily, lamotrigine 25 mg daily (bipolar) She is interested in and I agreed CBD marijuana may helps seizure control, but it is not officially recommended More recommendation per clinical course Prognosis: Poor This medical document was created using an electronic medical record system with [employer] system. Although this document has been carefully reviewed, there may still be some phonetic and typographical errors. These areas are purely typographical due to imperfections of the software programs, and do not reflect any compromise in the patient's medical care. Plan discussed with: Patient, Other KANNAN RILEY MD May 09, 2025 17:10
[2025-05-09] MEDS ORDERED: LORazepam 2MG/ML-1ML VIAL IV PRN (18:00)
--- NOTE | 2025-05-09 20:02 | DVHPN2 ---
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 Described as generalized body shakes lasted less than 30-40 seconds. Patient apparently confused after that for few minutes. Then patient is alert awake oriented x3 at her baseline. Asking when she can go back to her alf. She wants to try marijuana for her seizures. Changes from previous H/P or p: No Changes Eyes: No Pain, No Vision change, No Conjunctivae inflammation, No Eyelid inflammation, No Other, No Redness ENT: No Ear pain, No Ear discharge, No Nose pain, No Nose discharge, No Nose congestion, No Mouth pain, No Mouth swelling, No Throat pain, No Throat swelling, No Other Cardiovascular: No Chest Pain, No Palpitations, No Orthopnea, No Paroxysmal Noc. Dyspnea, No Edema, No Lt Headedness; Other (VNS shunt) Respiratory: No Cough, No Dry, No Shortness of breath, No SOB with excertion, No Wheezing, No Hemoptysis, No Pleuritic Pain, No Sputum, No Other Gastrointestinal: No Nausea, No Vomiting, No Abdominal Pain, No Diarrhea, No Constipation, No Melena, No Hematochezia, No Other Genitourinary: No Dysuria, No Frequency, No Incontinence, No Hematuria, No Retention, No Other Musculoskeletal: No other, No neck pain, No shoulder pain, No arm pain, No back pain, No hand pain, No leg pain, No foot pain Objective Vitals Vital Signs Date Time Temp Pulse Resp B/P (MAP) Pulse Ox O2 Delivery O2 Flow Rate FiO2 05/09/25 17:00 97.4 91 20 100/71 (81) 97 97.4 05/09/25 08:00 Nasal Cannula* 2 28 Intake/Output Intake and Output 05/09/25 07:00 Intake Total 600 ml Balance 600 ml Intake Oral 500 ml IV Total 100 ml # Voids 4 # Bowel Movements 1 Exam Alert awake oriented x3. HEENT pupils equal round react to light. Neck supple no JVD. Heart regular rate and rhythm S1-S2. Lungs fair air movement without rales wheezes. Abdomen obese soft nontender positive bowel sounds. Extremities no edema positive pulses. Neurologic. No focal deficits. Medications Current Medications Medications Dose Ordered Sig/Chayo Route Start Time Stop Time Status Last Admin Dose Admin Levothyroxine Sodium 75 mcg QAM@0600 PO 05/08/25 06:00 05/09/25 05:47 75 MCG Sertraline HCl 100 mg DAILY PO 05/08/25 10:00 05/09/25 10:40 100 MG Trazodone HCl 100 mg HS PO 05/07/25 22:00 05/08/25 21:46 100 MG Acetaminophen/ Hydrocodone Bitart 1 tab Q4HP PRN PO 05/07/25 21:30 Ondansetron HCl 4 mg Q4HP PRN IV 05/07/25 21:30 Docusate Sodium 100 mg BIDPRN PRN PO 05/07/25 21:30 Acetaminophen 650 mg Q6HP PRN PO 05/07/25 21:30 Nitroglycerin 0.4 mg Q5MINP PRN SL 05/07/25 23:45 Morphine Sulfate 2 mg Q30M PRN IV 05/07/25 23:45 Divalproex Sodium 500 mg BID PO 05/09/25 22:00 Lacosamide 200 mg BID PO 05/09/25 22:00 Lorazepam 1 mg Q15MP PRN IV 05/09/25 18:00 Levetiracetam 1,500 mg BID PO 05/09/25 22:00 Patient Own Medication 12 mg DAILY PO 05/09/25 21:00 Lamotrigine 25 mg DAILY PO 05/10/25 10:00 Laboratory Results Laboratory Tests 05/08/25 04:30 Urinalysis Test 05/07/25 22:55 Urine Color Light-yellow (Yellow) Urine Clarity Clear (Clear) Urine pH 7.5 (5.0-9.0) Urine Specific [place] 1.020 (1.001-1.035) Urine Protein Negative (Negative) Urine Ketones Negative (Negative) Urine Blood Trace /uL (Negative) H Urine Nitrite Negative (Negative) Urine Bilirubin Negative (Negative) Urine Urobilinogen Normal mg/dL (Negative) Urine Leukocyte Esterase Negative /uL (Negative) Urine RBC 2 /hpf (0 - 4) Urine Microscopic WBC < 1 /HPF (0-5) Urine Squamous Epithelial Cells Few /hpf (<5) Urine Bacteria Few /hpf (None Seen) H Urine Hyaline Casts Few /lpf (0 - 2) Urine Mucus Few (None Seen) Urine Glucose Normal mg/dL (Normal) Urine Test Negative (Negative) Assessment/Plan Assessment/Plan We will add her home Vimpat and Depakote dose as she is taking at the [facility]. Her medications were reviewed with the nurse. Continue IV Keppra. Pending Neurology evaluation this afternoon. If she remains seizure-free consider discharge back to alf tomorrow. Discussed with the patient and nurse at bedside regarding care plan. Plan discussed with: Patient, Other My Orders Orders - AVELINO CONN MD Procedure Category Date Status Time Divalproex Dr Tablet PHA 05/09/25 In Process (Depakote "Dr" Tabl 22:00 Lacosamide (Vimpat) PHA 05/09/25 In Process 22:00 Problem List: (1) Breakthrough seizure (2) Generalized weakness Date of Service: May 09, 2025 Billing Provider: AVELINO CONN MD Common Visit Codes: [id number] INP/OBS CARE(MOD) AVELINO CONN MD May 09, 2025 20:02
[2025-05-09] MEDS: FYCOMPA 12 MG PO SCH (20:44)
[2025-05-09] MEDS: LACOSAMIDE 50 MG TAB PO SCH (22:07)
[2025-05-10 05:00] VITALS: BP 96/51; PULSE 80; RESP 18; TEMP 98.6; O2SAT 94
[2025-05-10 08:00] VITALS: PULSE 76
[2025-05-10 09:00] VITALS: BP 96/54; PULSE 85; RESP 16; TEMP 98.2; O2SAT 93
[2025-05-10] MEDS: lamoTRIgine 25 MG TAB PO SCH (10:23)
--- NOTE | 2025-05-10 10:56 | DVHPN2 ---
Progress Note - Dictate Date Seen: May 10, 2025 Medical Necessity Reason Pt with a Central, PICC or Fol: No Subjective Ms. Rivas is a 39 years old right-handed female with a history of seizure disorder, bipolar disorder, hypothyroidism, she was brought to the [facility] on 05/07/2025 with a chief complaint of seizure activity. I have seen and examined the patient, I have discussed with his nurse, I have also talked to his sister on the phone. She is doing fine, no new complaints, but reports seizure activity overnight Again she reported in the her status confirmed that she always has seizure, she came to the hospital this time because the seizure lasted longer than usual Again I have suggested and she agreed that she needs to see a specialist in a [facility] for her seizure I have advised her to discuss with her family doctor Re: Consider discontinuing zonisamide Urinalysis, 05/07/2025: WBC: One, urine leukocyte esterase: Negative CBC, 05/08/2025: Unremarkable CMP, 05/08/2025: Unremarkable CT head, 04/21/2025: No acute intracranial abnormality. vital signs Vital Sign Date Time Temp Pulse Resp B/P (MAP) Pulse Ox O2 Delivery O2 Flow Rate FiO2 05/10/25 09:00 98.2 85 16 96/54 (68) 93 98.2 05/09/25 20:00 Nasal Cannula* 2 28 Total Intake and Output 05/09/25 05/09/25 05/10/25 15:00 23:00 07:00 Intake Total 100 ml 600 ml 900 ml Balance 100 ml 600 ml 900 ml medications Current Medications Medications Dose Ordered Sig/Chayo Route Start Time Stop Time Status Last Admin Dose Admin Levothyroxine Sodium 75 mcg QAM@0600 PO 05/08/25 06:00 05/10/25 05:57 75 MCG Sertraline HCl 100 mg DAILY PO 05/08/25 10:00 05/10/25 10:22 100 MG Trazodone HCl 100 mg HS PO 05/07/25 22:00 05/09/25 22:07 100 MG Acetaminophen/ Hydrocodone Bitart 1 tab Q4HP PRN PO 05/07/25 21:30 Ondansetron HCl 4 mg Q4HP PRN IV 05/07/25 21:30 Docusate Sodium 100 mg BIDPRN PRN PO 05/07/25 21:30 Acetaminophen 650 mg Q6HP PRN PO 05/07/25 21:30 Nitroglycerin 0.4 mg Q5MINP PRN SL 05/07/25 23:45 Morphine Sulfate 2 mg Q30M PRN IV 05/07/25 23:45 Divalproex Sodium 500 mg BID PO 05/09/25 22:00 05/10/25 10:24 500 MG Lacosamide 200 mg BID PO 05/09/25 22:00 05/10/25 10:23 200 MG Lorazepam 1 mg Q15MP PRN IV 05/09/25 18:00 Levetiracetam 1,500 mg BID PO 05/09/25 22:00 05/10/25 10:22 1,500 MG Patient Own Medication 12 mg DAILY PO 05/09/25 21:00 Lamotrigine 25 mg DAILY PO 05/10/25 10:00 05/10/25 10:23 25 MG objective General: the patient is well developed and nourished. No acute distress. MENTAL STATUS: Awake and alert. Oriented to person, place, time and general circumstances SPEECH, LANGUAGE, HIGHER CORTICAL FUNCTION: no aphasia or dysathria. CRANIAL NERVES: Pupils are equal, round and reactive. EOMs full and conjugate. No nystagmus. Facial sensation intact in all three divisions bilaterally. Mandibular strength intact. Facial muscles symmetrical and strength intact. SENSATION: Sensation to touch and pinprick is normal. MOTOR: Normal tone in the upper and lower extremity. Normal muscle bulk. No fasciculations. No abnormal movements or posturing. Muscle strength of the major groups in the extremities is 5/5. REFLEXES: Deep tendon reflexes normal and symmetrical. No pathological reflexes. CEREBELLAR/COORDINATION: Finger to nose is normal bilaterally. 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 Although this document has been carefully reviewed, there may still be some phonetic and typographical errors. These areas are purely typographical due to imperfections of the software programs, and do not reflect any compromise in the patient's medical care. Prognosis poor Plan discussed with: Patient, Other Total Time (mins): 35 KANNAN RILEY MD May 10, 2025 10:56
[2025-05-10 13:00] VITALS: BP 103/68; PULSE 98; RESP 20; TEMP 98; O2SAT 94
--- NOTE | 2025-05-10 13:42 | DVHPN2 ---
Reviewed: Care Plan, H&P, Labs, Medications, Previous Orders, Radiology Changes from previous H/P or p: No Changes Eyes: No Pain, No Vision change, No Conjunctivae inflammation, No Eyelid inflammation, No Other, No Redness ENT: No Ear pain, No Ear discharge, No Nose pain, No Nose discharge, No Nose congestion, No Mouth pain, No Mouth swelling, No Throat pain, No Throat swelling, No Other Cardiovascular: No Chest Pain, No Palpitations, No Orthopnea, No Paroxysmal Noc. Dyspnea, No Edema, No Lt Headedness; Other (VNS shunt) Respiratory: No Cough, No Dry, No Shortness of breath, No SOB with excertion, No Wheezing, No Hemoptysis, No Pleuritic Pain, No Sputum, No Other Gastrointestinal: No Nausea, No Vomiting, No Abdominal Pain, No Diarrhea, No Constipation, No Melena, No Hematochezia, No Other Genitourinary: No Dysuria, No Frequency, No Incontinence, No Hematuria, No Retention, No Other Musculoskeletal: No other, No neck pain, No shoulder pain, No arm pain, No back pain, No hand pain, No leg pain, No foot pain Objective Vitals Vital Signs Date Time Temp Pulse Resp B/P (MAP) Pulse Ox O2 Delivery O2 Flow Rate FiO2 05/10/25 13:00 98.0 98 20 103/68 (80) 94 98.0 05/09/25 20:00 Nasal Cannula* 2 28 Intake/Output Intake and Output 05/10/25 07:00 Intake Total 1600 ml Balance 1600 ml Intake Oral 600 ml IV Total 100 ml Tube Feeding 900 ml # Voids 5 Medications Current Medications Medications Dose Ordered Sig/Chayo Route Start Time Stop Time Status Last Admin Dose Admin Levothyroxine Sodium 75 mcg QAM@0600 PO 05/08/25 06:00 05/10/25 05:57 75 MCG Sertraline HCl 100 mg DAILY PO 05/08/25 10:00 05/10/25 10:22 100 MG Trazodone HCl 100 mg HS PO 05/07/25 22:00 05/09/25 22:07 100 MG Acetaminophen/ Hydrocodone Bitart 1 tab Q4HP PRN PO 05/07/25 21:30 Ondansetron HCl 4 mg Q4HP PRN IV 05/07/25 21:30 Docusate Sodium 100 mg BIDPRN PRN PO 05/07/25 21:30 Acetaminophen 650 mg Q6HP PRN PO 05/07/25 21:30 Nitroglycerin 0.4 mg Q5MINP PRN SL 05/07/25 23:45 Morphine Sulfate 2 mg Q30M PRN IV 05/07/25 23:45 Divalproex Sodium 500 mg BID PO 05/09/25 22:00 05/10/25 10:24 500 MG Lacosamide 200 mg BID PO 05/09/25 22:00 05/10/25 10:23 200 MG Lorazepam 1 mg Q15MP PRN IV 05/09/25 18:00 Levetiracetam 1,500 mg BID PO 05/09/25 22:00 05/10/25 10:22 1,500 MG Patient Own Medication 12 mg DAILY PO 05/09/25 21:00 Lamotrigine 25 mg DAILY PO 05/10/25 10:00 05/10/25 10:23 25 MG Laboratory Results Laboratory Tests 05/08/25 04:30 Urinalysis Test 05/07/25 22:55 Urine Color Light-yellow (Yellow) Urine Clarity Clear (Clear) Urine pH 7.5 (5.0-9.0) Urine Specific [place] 1.020 (1.001-1.035) Urine Protein Negative (Negative) Urine Ketones Negative (Negative) Urine Blood Trace /uL (Negative) H Urine Nitrite Negative (Negative) Urine Bilirubin Negative (Negative) Urine Urobilinogen Normal mg/dL (Negative) Urine Leukocyte Esterase Negative /uL (Negative) Urine RBC 2 /hpf (0 - 4) Urine Microscopic WBC < 1 /HPF (0-5) Urine Squamous Epithelial Cells Few /hpf (<5) Urine Bacteria Few /hpf (None Seen) H Urine Hyaline Casts Few /lpf (0 - 2) Urine Mucus Few (None Seen) Urine Glucose Normal mg/dL (Normal) Urine Test Negative (Negative) Labs and/or images reviewed: Labs reviewed by me, Image(s) reviewed by me Assessment/Plan Assessment/Plan Grand mal seizure Kelly, Neurology consult by Dr. 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
--- NOTE | 2025-05-10 13:46 | DVHDS2 ---
Discharge Summary Date of Admission May 07, 2025 at 23:32 Date of Discharge: May 10, 2025 Admitting Diagnosis Breakthrough seizures Wounds: None Labs/Diagnostic Data: Laboratory Results Test 05/08/25 04:30 05/07/25 22:55 05/07/25 19:13 White Blood Count 8.0 10^3/uL (4.4-10.8) Red Blood Count 4.50 10^6/uL (4.0-5.20) Hemoglobin 13.3 g/dL (12.2-16.2) Hematocrit 39.9 % (36.0-46.0) Mean Corpuscular Volume 88.8 fL (80.0-100.0) Mean Corpuscular Hemoglobin 29.6 pg (28.0-32.0) Mean Corpuscular Hemoglobin Concent 33.3 g/dL (32.0-36.0) Red Cell Distribution Width 14.9 % (11.8-14.3) Platelet Count 195 10^3/uL (140-450) Mean Platelet Volume 7.9 fL (6.9-10.8) Neutrophils (%) (Auto) 51.0 % (37.0-80.0) Lymphocytes (%) (Auto) 41.1 % (10.0-50.0) Monocytes (%) (Auto) 7.6 % (0.0-12.0) Eosinophils (%) (Auto) 0.1 % (0.0-7.0) Basophils (%) (Auto) 0.2 % (0.0-2.0) Neutrophils # (Auto) 4.1 10 ^3/uL (1.6-8.6) Lymphocytes # (Auto) 3.3 10 ^3/uL (0.4-5.4) Monocytes # (Auto) 0.6 10 ^3/uL (0-1.3) Eosinophils # (Auto) 0 10 ^3/uL (0-0.8) Basophils # (Auto) 0 10 ^3/uL (0-0.2) Nucleated Red Blood Cells 0.1 % Sodium Level 141 mmol/L (136-145) Potassium Level 3.4 mmol/L (3.5-5.1) Chloride Level 108 mmol/L (98-107) Carbon Dioxide Level 24 mmol/L (20-31) Anion Gap 9 (5-15) Blood Urea Nitrogen 11 mg/dL (9-23) Creatinine 0.69 mg/dL (0.550-1.02) Glomerular Filtration Rate Calc 113 mL/min (>90) BUN/Creatinine Ratio 15.9 (10.0-20.0) Serum Glucose 83 mg/dL (74-106) Calcium Level 8.9 mg/dL (8.7-10.4) Total Bilirubin 0.3 mg/dL (0.2-1.0) Aspartate Amino Transferase (AST) 21 U/L (13-40) Alanine Aminotransferase (ALT) 15 U/L (7-40) Alkaline Phosphatase 98 U/L (46-116) Total Protein 6.9 g/dL (5.7-8.2) Albumin 4.0 g/dL (3.2-4.8) Urine Color Light-yellow (Yellow) Urine Clarity Clear (Clear) Urine pH 7.5 (5.0-9.0) Urine Specific [place] 1.020 (1.001-1.035) Urine Protein Negative (Negative) Urine Ketones Negative (Negative) Urine Blood Trace /uL (Negative) Urine Nitrite Negative (Negative) Urine Bilirubin Negative (Negative) Urine Urobilinogen Normal mg/dL (Negative) Urine Leukocyte Esterase Negative /uL (Negative) Urine RBC 2 /hpf (0 - 4) Urine Microscopic WBC < 1 /HPF (0-5) Urine Squamous Epithelial Cells Few /hpf (<5) Urine Bacteria Few /hpf (None Seen) Urine Hyaline Casts Few /lpf (0 - 2) Urine Mucus Few (None Seen) Urine Glucose Normal mg/dL (Normal) Urine Test Negative (Negative) Other Laboratory Tests 05/08/25 04:30 Brief Hx & Hospital Course: 69-year-old female with a history of seizures on Keppra and Lamictal admitted for breakthrough seizures treated with the medications. She did not have any seizures after admission Neurology consult by Dr. Marino. The patient feels better and wants to go home. Discharged home. Patient says she has seizure medications at home and does not need any prescription Consults/Reason for consult Neurology Dr. Marino Operations or Procedures None Condition at Discharge: Fair Final Diagnosis/Problems List Grand mal seizure Keppra, Neurology consult by Dr. 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 Patient was counseled about treatment plan, medications, possible side effects, patientverbalized understanding. All questions were answered to the best of my ability. This discharge took greater then 30 minutes in planning, reviewing documentation, counseling the patient, and discussing with other team members." ASSESSMENT ASSESSMENT Hospital Course Improved Assessment Grand mal seizure Kelly, Neurology consult by Dr. 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
[2025-05-10 17:00] VITALS: BP 88/56; PULSE 82; RESP 17; TEMP 98.4; O2SAT 97
--- NOTE | 2025-05-11 00:18 | DVHEEG2 ---
Neurology EEG Procedural Note Procedural Note EXAM DATE: 05/10/2025 REFERRING DOCTOR: Dr. Riley TECHNIQUE: Eighteen channels of EEG, 2 channels of EOG, and 1 channel of EKG were recorded using the International 10/20 system. CLINICAL DATA: The patient was referred for an EEG evaluation for the evidence of seizure disorder. MEDICATIONS: See the chart BACKGROUND ACTIVITY: While the patient was awake, the background activity consisted of well regulated 8-9 Hz rhythmic waveforms, symmetrically distributed over both posterior quadrants and was reactive to eye opening. ACTIVATION: Hyperventilation: Not done Photic Stimulation: Not done Sleep: Noticed IMPRESSION: This is a normal EEG. No focal, lateralized, or epileptiform features are noted. If clinically indicated to rule out a seizure disorder, recommend repeat EEG with sleep deprivation. The EKG channel showed a regular heart rate of 96 per minute [place] [address] KANNAN RILEY MD May 11, 2025 00:18
== END 2025-05-10 17:43 | disposition home or self-care (01) | DRG 101 ==
LOC: EDBD 17:45 → ER 17:45 → OVERFLOW 23:32 → TELE-CENTR 05-08 15:50 → TELE-EAST 05-09 12:16
PROVIDERS: ADMIT Family Medicine; ATTEND Family Medicine
DX: G40.401 Other generalized epilepsy and epileptic syndromes, not intractable, with status epilepticus (principal); E03.9 Hypothyroidism, unspecified; F31.9 Bipolar disorder, unspecified; S01.01XA Laceration without foreign body of scalp, initial encounter; Z79.899 Other long term (current) drug therapy; W18.39XA Other fall on same level, initial encounter; Y93.89 Activity, other specified; Y92.89 Other specified places as the place of occurrence of the external cause; Y99.8 Other external cause status; Z80.1 Family history of malignant neoplasm of trachea, bronchus and lung
CPT/HCPCS: 36415; 71045; 80048; 80053; 81001; 81025; 82542; 85025; 95819; G0378

== ENCOUNTER 2025-07-08 08:47 | Emergency (ER) | payer OTHER, MEDICAID ==
[~2025-07-08] VITALS: Ht 157.5 cm; Wt 88.5 kg
--- NOTE | 2025-07-08 10:20 | DVH ---
EXAM: CT HEAD WITHOUT CONTRAST INDICATION: SEIZURE TECHNIQUE: CT of the head without intravenous contrast. Coronal and sagittal reformatted images are s ubmitted. Radiation Dose : 1. Head: CT Dose: CTDI volume is 60.02 mGy. Dose-length product is 1016.0 mGy*cm The dose indicators for CT are the volume Computed Tomography (CT) Dose Index (CTDIvol) and the Dose Length Product (DLP), and are measured in units of mGy and mGy-cm, respectively. These indicators are not patient dose, but values generated from the CT scanner acquisition factors. The report includes radiation exposure data for exposures received during this examination. All CT scans at this medical facility are performed using dose modulation techniques as appropriate to a performed exam including the following: Automated exposure control was utilized; adjustment of the MA and/or KV according to patient size; and use of iterative reconstruction technique. COMPARISON: CT HEAD WITHOUT CONTRAST on DOS: 04/21/25 FINDINGS: There is no evidence of acute intracranial hemorrhage, extra-axial collection, mass effect, midline s hift, herniation or hydrocephalus. The ventricles, sulci and cisterns are age appropriate. The saldaña-white differentiation is intact. The mastoid air cells are clear. There is mucosal thickening in the left maxillary sinus. No depressed calvarial fracture. There is posterior scalp swelling. IMPRESSION: 1. No acute intracranial abnormality. 2. Posterior scalp swelling.
[2025-07-08 10:50] LABS: Urine Protein, UAD Negative (Negative)
[2025-07-08] MEDS: levETIRAcetam 1000 mg/100ml 100 ML IV ONE (11:32)
--- NOTE | 2025-07-08 11:32 | ED.PDOC ---
HPI (NEURO) HPI Comments Ynes Prado is a 40-year-old female with past medical history of seizures (since childhood), bipolar disorder and hypothyroidism. The patient came to the ED via EMS from a SNF with chief complain of 4 hours ago having a single episode of generalized tonic-clonic seizure, of unknown duration, with urinary incontinence; during the episode she fell face first to the ground hitting her head. During the interview the patient is alone and there is no witness to explain more details or duration of postictal state. On further questioning the patient reports increase on frequency of the seizures, having 2 per day for the last week, the patient reports she lives in a SNF, she said she does not know how much Keppra is taking. The patient denies fever, chills, dizziness, motor deficits or other symptoms. Attestation note: Dr. Olvera: I was the supervising attending for this ED encounter. Please see the resident's notes. I was available for questions and consultations. Differential diagnosis: SEIZURE DDX include not limited to CVA, cerebellar ischemia/infarct, carotid stenosis, vertebral/carotid artery dissection,, vertebrobasillary insufficiency, Intracranial mass/infection/bleed, encephalopathy, elctrolyte abnormality, thyroid disease, multiple sclerosis, hypoglycemia, drug toxicity, cardiac arrhythmia, sub-theraputic anti-convulsion medications, known seizure disorder, pseudo-seizure. MDM: MDM: patient presented with the above HPI.-breakthrough seizure-----workup was initiated. patient was found with the above mentioned diagnosis. the following medications were ordered: please refer to order lists of meds and tests obtained by myself Dr. Olvera. Patient ED course and VS have been stabilized. Patient has been reassessed in the ED and remained in a stable condition. Patient has been observed in the ED adequate length of time to insure improvement/stability. Escalation of care considered: Consideration of escalation to observation or admission We are unable to admit the patient to our facility because we do not have any neurologist for the next two weeks. Patient will be transferred to another facility where they have neurology coverage for further evaluation of recurrent seizures despite recent changes of medications. We attempted to reach [facility] where her neurologist is affiliated with. [facility] his that capacity. We had an accepting facility [facility]. For some miscommunication we found out the next day that the patient is still in the ER and has not been transferred. We will continue to attempt to transfer the patient to a facility where patient can have a neurology consultation. We will give the patient's home medications for her seizure while waiting here in the ED. All the reports of any imaging studies that were ordered by myself were reviewed by myself. Chief Complaint: Seizure Time Seen by MD: 10:44 Reviewed Notes: Nurses Notes, Medications, Allergies Information Source: Patient Mode of Arrival: EMS Severity: Mild Timing: Hours Duration: Minutes Seizure Quality: Tonic-clonic, Single Episodes Associated Signs and Symptoms: Headache Past Medical History PAST MEDICAL HISTORY: Seizures Past Medical History (Other): Bipolar disorder Hypothyroidism Surgical History: Denies all surgeries BOBJ DEVELOPER History: No Pertinent BOBJ DEVELOPER History Family History Family History: Reviewed,noncontributory to illness Social History Smoker: Non-Smoker Alcohol: Denies ETOH Use Drugs: Denies Drug Use Lives In: Home Constitutional: denies: chills, diaphoresis, fatigue, fever, malaise, sweats, weakness, others EENTM: denies: blurred vision, double vision, ear bleeding, ear discharge, ear drainage, ear pain, ear ringing, eye pain, eye redness, hearing loss, mouth pain, mouth swelling, nasal discharge, nose bleeding, nose congestion, nose pain, photophobia, tearing, throat pain, throat swelling, voice changes, others Respiratory: denies: cough, hemoptysis, orthopnea, SOB at rest, shortness of breath, SOB with excertion, stridor, wheezing, others Cardiovascular: denies: chest pain, dizzy spells, diaphoresis, Dyspnea on exert ion, edema, irregular heart beat, left arm pain, lightheadedness, palpitations, PND, syncope, others Gastrointestinal: denies: abdomen distended, abdominal pain, blood streaked bowels, constipated, diarrhea, dysphagia, difficulty swallowing, hematemesis, melena, nausea, poor appetite, poor fluid intake, rectal bleeding, rectal pain, vomiting, others Genitourinary: denies: abnormal vagina bleeding, burning, dyspareunia, dysuria, flank pain, frequency, hematuria, incontinence, pain, , vagina discharge, urgency, others Neurological: reports: seizure Musculoskeletal: denies: back pain, gout, joint pain, joint swelling, muscle pain, muscle stiffness, neck pain, others Integumetry: denies: bruises, change in color, change in hair/nails, dryness, laceration, lesions, lumps, rash, wounds, others Allergic/Immunocompromised: denies: Difficulty Healing, Frequent Infections, Hives, Itching, others Hematologic/Lymphatic: denies: anemia, blood clots, easy bleeding, easy bruising, swollen glands, others Endocrine: denies: excessive hunger, excessive sweating, excessive thirst, excessive urination, flushing, intolerance to cold, intolerance to heat, unexplained weight gain, unexplained weight loss, others Psychiatric: denies: anxiety, bipolar disorder, depression, hopeless, panic disorder, schizophrenia, sleepless, suicidal, others Physical Exam General Appearance: No Apparent Distress, Normal HEENT: Head (The patient is wearing a helmet, I removed the helmet to perform the PE; Inspection: normocraneus, no deformation, or brusings, there is no tenderness on palpation over the scalp. In the occipital area: there is tenderness. There is no laserations, contusions or active bleeding. ), Normal ENT Inspection, Pharynx Normal, TMs Normal Neck: Full Range of Motion, Non-Tender, Normal, Normal Inspection Respiratory: Chest Non-Tender, Lungs Clear, No Accessory Muscle Use, No Respiratory Distress, Normal Breath Sounds Cardiovascular: No Edema, No JVD, No Murmur, No Gallop, Normal Peripheral Pulses, Regular Rate/Rhythm Breast Exam: Deferred Gastrointestinal: No Organomegaly, Non Tender, No Pulsatile Mass, Normal Bowel Sounds, Soft Genitalia: Deferred Pelvic: Deferred Rectal: Deferred Extremities: No calf tenderness, Normal capillary refill, Normal inspection, Normal range of motion, Non-tender, No pedal edema Musculoskeletal : Apperance: Normal Neurologic: Alert (Oriented X3), orthodontist assistant II-XII nml as Tested, No Motor Deficits, Normal Affect, Normal Mood, No Sensory Deficits Cerebellar Function: Normal Reflexes: Normal Skin: Dry, Normal Color, Warm Lymphatic: No Adenopathy Was a procedure done? Was a procedure done?: No Differential Diagnosis (SZ) Seizure: Syncope, Encephalopathy, Epilepsy-Break Through, Epilepsy-Status X-Ray, Labs, Meds, VS Vital Signs Date Time Temp Pulse Resp B/P (MAP) Pulse Ox O2 Delivery O2 Flow Rate FiO2 07/08/25 12:00 69 15 113/61 (78) 94 07/08/25 10:00 97.7 69 13 96/72 (80) 98 97.7 07/08/25 10:00 69 07/08/25 09:01 Room Air* 0 21 07/08/25 08:59 73 18 103/63 (76) 95 07/08/25 08:47 98.1 76 18 120/85 98 98.1 Lab Test 07/08/25 11:21 07/08/25 10:30 Range/Units White Blood Count 7.0 4.4-10.8 10^3/uL Red Blood Count 4.73 4.0-5.20 10^6/uL Hemoglobin 13.9 12.2-16.2 g/dL Hematocrit 41.7 36.0-46.0 % Mean Corpuscular Volume 88.2 80.0-100.0 fL Mean Corpuscular Hemoglobin 29.5 28.0-32.0 pg Mean Corpuscular Hemoglobin Concent 33.4 32.0-36.0 g/dL Red Cell Distribution Width 15.4 H 11.8-14.3 % Platelet Count 205 140-450 10^3/uL Mean Platelet Volume 8.0 6.9-10.8 fL Neutrophils (%) (Auto) 52.0 37.0-80.0 % Lymphocytes (%) (Auto) 40.5 10.0-50.0 % Monocytes (%) (Auto) 7.2 0.0-12.0 % Eosinophils (%) (Auto) 0.0 0.0-7.0 % Basophils (%) (Auto) 0.3 0.0-2.0 % Neutrophils # (Auto) 3.6 1.6-8.6 10 ^3/uL Lymphocytes # (Auto) 2.8 0.4-5.4 10 ^3/uL Monocytes # (Auto) 0.5 0-1.3 10 ^3/uL Eosinophils # (Auto) 0 0-0.8 10 ^3/uL Basophils # (Auto) 0 0-0.2 10 ^3/uL Nucleated Red Blood Cells 0.1 % Sodium Level 142 136-145 mmol/L Potassium Level 4.0 3.5-5.1 mmol/L Chloride Level 105 98-107 mmol/L Carbon Dioxide Level 27 20-31 mmol/L Anion Gap 10 5-15 Blood Urea Nitrogen 10 9-23 mg/dL Creatinine 0.68 0.550-1.02 mg/dL Glomerular Filtration Rate Calc 113 >90 mL/min BUN/Creatinine Ratio 14.7 10.0-20.0 Serum Glucose 83 74-106 mg/dL Lactic Acid Level 1.0 0.4-2.0 mmol/L Calcium Level 9.0 8.7-10.4 mg/dL Magnesium Level 2.1 1.6-2.6 mg/dL Total Bilirubin 0.3 0.2-1.0 mg/dL Aspartate Amino Transferase (AST) 21 13-40 U/L Alanine Aminotransferase (ALT) 19 7-40 U/L Alkaline Phosphatase 99 46-116 U/L Troponin I High Sensitivity < 3 L </=34 ng/L Total Protein 7.6 5.7-8.2 g/dL Albumin 4.1 3.2-4.8 g/dL Levetiracetam Level Pending Urine Color Yellow Yellow Urine Clarity Clear Clear Urine pH 6.5 5.0-9.0 Urine Specific [place] 1.025 1.001-1.035 Urine Protein Negative Negative Urine Ketones Trace Negative Urine Blood Negative Negative /uL Urine Nitrite Negative Negative Urine Bilirubin Negative Negative Urine Urobilinogen Normal Negative mg/dL Urine Leukocyte Esterase Negative Negative /uL Urine RBC 1 0 - 4 /hpf Urine Microscopic WBC 2 0-5 /HPF Urine Squamous Epithelial Cells Few <5 /hpf Urine Bacteria None seen None Seen /hpf Urine Mucus Few None Seen Urine Glucose Normal Normal mg/dL Current Medications Medications (Trade) Dose Ordered Sig/Chayo Route Start Time Stop Time Status Last Admin Levetiracetam 100 ml @ 400 mls/hr ONCE ONCE IV 07/08/25 11:15 07/08/25 11:29 DC 07/08/25 11:32 X-Ray, Labs, Meds, VS Comment 11:52 am The patient was re-assessed, the patient reports feeling better. CBC: WBC: 7.0x10e3/uL, Hb: 13.9 CMP:Unremarkable Pending Levetiracetam levels Head CT scan: No acute intracranial abnormality. Posterior scalp swelling. The patient will be transfer to higher level of care for neurology evaluation and management due to multiple daily seizures despite medication. Time of 1ST Reevaluation: 11:52 Reevaluation 1ST: Improved Patient Education/Counseling: Diagnosis, Treatment, Prognosis, Need For Follow Up Family Education/Counseling: No Family Present Departure 1 Departure Time of Disposition: 11:52 Impression: Primary Impression: Breakthrough seizure Additional Impression: Closed head injury Disposition: 51 HOSPICE/MEDICAL FACILITY ([facility]. ) Admit to: Med Surg Condition: Good Comments Goals of care discussed with the patient > 35 min. Discussed plan of care with Dr. Olvera Code status: Full code PCP: Patient does not know the name, she said is the SNF physician. Neurologist: Dr. Nyla Claros Plan discussed with: Patient, the patient agrees with the transfer plan. Critical Care Note Critical Care Time?: No Stability Stability form required: No Heart Score Heart Score: Heart Score Response (Comments) Value History N/A 0 EKG N/A 0 Age N/A 0 Risk Factors N/A 0 Troponin N/A 0 Total 0 HARRY GARCIA RESIDENT Jul 08, 2025 11:32 LARRY OLVERA DO Jul 09, 2025 08:54
[2025-07-08 11:45] LABS: Hematocrit 41.7 % (36.0-46.0); Hemoglobin 13.9 g/dL (12.2-16.2); Mean Corpuscular Hemoglobin 29.5 pg (28.0-32.0); Mean Corpuscular Volume 88.2 fL (80.0-100.0); Nucleated Red Blood Cells % 0.1 %
[2025-07-08 12:00] LABS: Alanine Aminotransferase 19 U/L (7-40); Albumin 4.1 g/dL (3.2-4.8); Alkaline Phosphatase 99 U/L (46-116); Anion Gap 10 (5-15); BUN/Creatinine Ratio 14.7 (10.0-20.0); Blood Urea Nitrogen 10 mg/dL (9-23); Calcium 9.0 mg/dL (8.7-10.4); Carbon Dioxide 27 mmol/L (20-31); Chloride 105 mmol/L (98-107); Glucose 83 mg/dL (74-106); Magnesium 2.1 mg/dL (1.6-2.6); Potassium 4.0 mmol/L (3.5-5.1); Sodium 142 mmol/L (136-145); Total Protein 7.6 g/dL (5.7-8.2)
[2025-07-08 12:02] LABS: Bilirubin, Total 0.3 mg/dL (0.2-1.0)
[2025-07-08] MEDS ORDERED: ACETAMINOPHEN 325 MG TAB PO PRN (12:15)
[2025-07-08] MEDS ORDERED: ONDANSETRON HCL 4 MG/2 ML VIAL IV PRN (12:15)
--- NOTE | 2025-07-08 12:16 | DVHHP2 ---
History of Present Illness Reason for Visit: Seizure disorder History of Present Illness Ynes Rivas is a 40-year-old female with past medical history of seizures, bipolar disorder, and hypothyroidism who presents to the ED with a single episode of generalized tonic-clonic seizure with the urinary incontinence. Per reports patient fell face 1st to the ground hitting her head, but patient also wears a helmet at all times. Patient also reports that she has been having an increase of frequency of her seizures having to per day for the last week. Patient reports that she was sitting in the kitchen eating and had her home on when she fell face forward on the kitchen floor. She denies any head pain. She also endorses medication compliance. Patient is currently from a [facility] facility. Patient denies any recent travels, recent sick contacts, recent ingestion of spoiled food, chest pain, shortness of breath, fever, chills, lightheadedness, weakness, dizziness, abdominal pain, nausea, vomiting, diarrhea, or urinary symptoms. Patient also reports that she has a caregiver at the [facility] facility that gives her medications. Psych: Bipolar Endocrine: Hypothyroidism Past Surgical History: Other (VNS shunt, Bilateral ankle surgery, left 5th finger surgery, and both knee surgery) Family History: None Smoke: No ALCOHOL: none Drugs: None Lives: [place] Domestic Violence: Neg Review of Systems Neurological: Seizures Allergies: Coded Allergies: NO KNOWN ALLERGIES (Unverified , 04/21/25) Exam Vital Signs Vital Signs Date Time Temp Pulse Resp B/P (MAP) Pulse Ox O2 Delivery O2 Flow Rate FiO2 07/08/25 09:01 Room Air* 0 21 07/08/25 08:59 73 18 103/63 (76) 95 07/08/25 08:47 98.1 98.1 General Appearance: Alert, Oriented X3, Cooperative, No acute distress HEENT: PERRLA, EOMI, Mucous membr. moist/pink Respiratory: Normal air movement Cardiovascular: Regular rate, Normal S1, Normal S2 Abdominal: Normal bowel sounds, Soft Extremities: No cyanosis, Normal pulses Neuro: Normal speech, Normal tone, Sensation intact Psych/Mental Status: Mental status NL, Mood NL Labs/Xrays Labs Test 07/08/25 11:21 07/08/25 10:30 Range/Units White Blood Count 7.0 4.4-10.8 10^3/uL Red Blood Count 4.73 4.0-5.20 10^6/uL Hemoglobin 13.9 12.2-16.2 g/dL Hematocrit 41.7 36.0-46.0 % Mean Corpuscular Volume 88.2 80.0-100.0 fL Mean Corpuscular Hemoglobin 29.5 28.0-32.0 pg Mean Corpuscular Hemoglobin Concent 33.4 32.0-36.0 g/dL Red Cell Distribution Width 15.4 H 11.8-14.3 % Platelet Count 205 140-450 10^3/uL Mean Platelet Volume 8.0 6.9-10.8 fL Neutrophils (%) (Auto) 52.0 37.0-80.0 % Lymphocytes (%) (Auto) 40.5 10.0-50.0 % Monocytes (%) (Auto) 7.2 0.0-12.0 % Eosinophils (%) (Auto) 0.0 0.0-7.0 % Basophils (%) (Auto) 0.3 0.0-2.0 % Neutrophils # (Auto) 3.6 1.6-8.6 10 ^3/uL Lymphocytes # (Auto) 2.8 0.4-5.4 10 ^3/uL Monocytes # (Auto) 0.5 0-1.3 10 ^3/uL Eosinophils # (Auto) 0 0-0.8 10 ^3/uL Basophils # (Auto) 0 0-0.2 10 ^3/uL Nucleated Red Blood Cells 0.1 % Sodium Level 142 136-145 mmol/L Potassium Level 4.0 3.5-5.1 mmol/L Chloride Level 105 98-107 mmol/L Carbon Dioxide Level 27 20-31 mmol/L Anion Gap 10 5-15 Blood Urea Nitrogen 10 9-23 mg/dL Creatinine 0.68 0.550-1.02 mg/dL Glomerular Filtration Rate Calc 113 >90 mL/min BUN/Creatinine Ratio 14.7 10.0-20.0 Serum Glucose 83 74-106 mg/dL Lactic Acid Level 1.0 0.4-2.0 mmol/L Calcium Level 9.0 8.7-10.4 mg/dL Magnesium Level 2.1 1.6-2.6 mg/dL Total Bilirubin 0.3 0.2-1.0 mg/dL Aspartate Amino Transferase (AST) 21 13-40 U/L Alanine Aminotransferase (ALT) 19 7-40 U/L Alkaline Phosphatase 99 46-116 U/L Troponin I High Sensitivity < 3 L </=34 ng/L Total Protein 7.6 5.7-8.2 g/dL Albumin 4.1 3.2-4.8 g/dL Urine Color Yellow Yellow Urine Clarity Clear Clear Urine pH 6.5 5.0-9.0 Urine Specific [place] 1.025 1.001-1.035 Urine Protein Negative Negative Urine Ketones Trace Negative Urine Blood Negative Negative /uL Urine Nitrite Negative Negative Urine Bilirubin Negative Negative Urine Urobilinogen Normal Negative mg/dL Urine Leukocyte Esterase Negative Negative /uL Urine RBC 1 0 - 4 /hpf Urine Microscopic WBC 2 0-5 /HPF Urine Squamous Epithelial Cells Few <5 /hpf Urine Bacteria None seen None Seen /hpf Urine Mucus Few None Seen Urine Glucose Normal Normal mg/dL ORDERING PHYSICIAN: LARRY OLVERA DO PROCEDURE(s): HWOCT - HEAD WITHOUT CONTRAST REASON: SEIZURE ORDER NUMBER(s): [id number], ACCESSION NUMBER(s): [id number] EXAM: CT HEAD WITHOUT CONTRAST INDICATION: SEIZURE TECHNIQUE: CT of the head without intravenous contrast. Coronal and sagittal reformatted images are submitted. Radiation Dose : 1. Head: CT Dose: CTDI volume is 60.02 mGy. Dose-length product is 1016.0 mGy*cm The dose indicators for CT are the volume Computed Tomography (CT) Dose Index (CTDIvol) and the Dose Length Product (DLP), and are measured in units of mGy and mGy-cm, respectively. These indicators are not patient dose, but values generated from the CT scanner acquisition factors. The report includes radiation exposure data for exposures received during this examination. All CT scans at this medical facility are performed using dose modulation techniques as appropriate to a performed exam including the following: Automated exposure control was utilized; adjustment of the MA and/or KV according to patient size; and use of iterative reconstruction technique. COMPARISON: CT HEAD WITHOUT CONTRAST on DOS: 04/21/25 FINDINGS: There is no evidence of acute intracranial hemorrhage, extra-axial collection, mass effect, midline shift, herniation or hydrocephalus. The ventricles, sulci and cisterns are age appropriate. The saldaña-white differentiation is intact. The mastoid air cells are clear. There is mucosal thickening in the left maxillary sinus. No depressed calvarial fracture. There is posterior scalp swelling. IMPRESSION: 1. No acute intracranial abnormality. 2. Posterior scalp swelling. SEPSIS Sepsis Screen Date sepsis recognized/suspect: Jul 08, 2025 Time Sepsis recognized/suspect: 846 Recent Procedure: No On Antibiotic Therapy: No Respiratory Rate >20: No Heart Rate >90: No Temp<36 C (96.8 F) or >38.3 C: No SBP <90 or MAP <65 mmHG: No New Acute Mental Status Change: No Is the patient on CPAP, BIPAP,: No Physician Orders Wedding Photographer (07/08/25 ) Seizure Precautions (07/08/25 ) Head Without Contrast (07/08/25 09:30) Electrocardigram (07/08/25 09:30) Troponin-I Hs (07/08/25 10:30) Troponin-I Hs (07/08/25 12:30) Levetiracetam (Keppra) (07/08/25 11:02) Vital Signs Date Time Temp Pulse Resp B/P (MAP) Pulse Ox O2 Delivery O2 Flow Rate FiO2 07/08/25 09:01 Room Air* 0 21 07/08/25 08:59 73 18 103/63 (76) 95 07/08/25 08:47 98.1 76 18 120/85 98 98.1 Laboratory Tests Test 07/08/25 11:21 Lactic Acid Level 1.0 mmol/L (0.4-2.0) White Blood Count 7.0 10^3/uL (4.4-10.8) Medications Medications Dose Ordered Sig/Chayo Route Start Time Stop Time Status Last Admin Dose Admin Levetiracetam 100 ml @ 400 mls/hr ONCE ONCE IV 07/08/25 11:15 07/08/25 11:29 DC 07/08/25 11:32 400 MLS/HR Assessment/Plan Assessment/Plan Assessment Seizure disorder Posterior scalp swelling History of bipolar disorder History of hypothyroidism History of VNS shunt History of left 5th finger surgery History of bilateral knee surgery History of bilateral ankle surgery Plan Admit to [facility] - unable to admit due to having no neurologist in-house Seizure precautions CT head noted Keppra Troponin noted EKG Antiemetics Pain management Diet Home medications reconciled DVT prophylaxis-SCDs PUD prophylaxis-not indicated no history of GERD or GI bleed Discussed plan of care with patient and nurse Patient from a SNF Neuro consulted-was just advised that there is no neurologist until July 19, 2025 [id number] Preventive counseling healthy eating habits, physical activity, and regular checkups Plan discussed with: Patient, Other Date of Service: Jul 08, 2025 Billing Provider: SURESH STODDARD Common Visit Codes: 95525-[id number] INP/OBS CARE (HIGH) Secondary Visit Codes: [id number] COUNSELING IND SURESH STODDARD Jul 08, 2025 12:16
[2025-07-08] MEDS: LORazepam 2MG/ML-1ML VIAL ONE (21:06)
[2025-07-08] MEDS: levETIRAcetam 500 mg/100ml 100 ML IV ONE (22:01)
[2025-07-09 09:02] VITALS: PULSE 61; RESP 17; O2SAT 93
--- NOTE | 2025-07-09 10:15 | DVHINCON2 ---
Date of service: Jul 09, 2025 Family History: FH: lung cancer G8 FATHER Thyroid disease G8 MOTHER Allergies: Coded Allergies: NO KNOWN ALLERGIES (Unverified , 04/21/25) Home Meds Active Scripts Ibuprofen (Ibuprofen) 800 Mg Tab, 1 TAB PO TID, #30 TAB Prov:JULIETTE VELARDEJosr MAYEN 05/01/25 Current Medications Current Medications Medications (Trade) Dose Ordered Sig/Chayo Route PRN Reason Start Time Stop Time Status Last Admin Ondansetron HCl (Zofran) 4 mg Q4HP PRN IV NAUSEA / VOMITING 07/08/25 12:15 07/08/25 15:19 DC Acetaminophen (Tylenol Tablet) 650 mg Q6HP PRN PO PAIN SCALE 1-3 OR TEMP>100.4 07/08/25 12:15 07/08/25 15:19 DC Divalproex Sodium (Depakote "Dr" Tablet) 500 mg BID PO 07/09/25 10:00 Vital Signs Vital Signs Date Time Temp Pulse Resp B/P (MAP) Pulse Ox O2 Delivery O2 Flow Rate FiO2 07/08/25 20:00 71 07/08/25 19:30 98.4 12 103/73 (83) 99 98.4 07/08/25 09:01 Room Air* 0 21 Labs/Diagnostic Data Labs Test 07/08/25 13:06 07/08/25 11:21 07/08/25 10:30 Range/Units Troponin I High Sensitivity < 3 L </=34 ng/L White Blood Count 7.0 4.4-10.8 10^3/uL Red Blood Count 4.73 4.0-5.20 10^6/uL Hemoglobin 13.9 12.2-16.2 g/dL Hematocrit 41.7 36.0-46.0 % Mean Corpuscular Volume 88.2 80.0-100.0 fL Mean Corpuscular Hemoglobin 29.5 28.0-32.0 pg Mean Corpuscular Hemoglobin Concent 33.4 32.0-36.0 g/dL Red Cell Distribution Width 15.4 H 11.8-14.3 % Platelet Count 205 140-450 10^3/uL Mean Platelet Volume 8.0 6.9-10.8 fL Neutrophils (%) (Auto) 52.0 37.0-80.0 % Lymphocytes (%) (Auto) 40.5 10.0-50.0 % Monocytes (%) (Auto) 7.2 0.0-12.0 % Eosinophils (%) (Auto) 0.0 0.0-7.0 % Basophils (%) (Auto) 0.3 0.0-2.0 % Neutrophils # (Auto) 3.6 1.6-8.6 10 ^3/uL Lymphocytes # (Auto) 2.8 0.4-5.4 10 ^3/uL Monocytes # (Auto) 0.5 0-1.3 10 ^3/uL Eosinophils # (Auto) 0 0-0.8 10 ^3/uL Basophils # (Auto) 0 0-0.2 10 ^3/uL Nucleated Red Blood Cells 0.1 % Sodium Level 142 136-145 mmol/L Potassium Level 4.0 3.5-5.1 mmol/L Chloride Level 105 98-107 mmol/L Carbon Dioxide Level 27 20-31 mmol/L Anion Gap 10 5-15 Blood Urea Nitrogen 10 9-23 mg/dL Creatinine 0.68 0.550-1.02 mg/dL Glomerular Filtration Rate Calc 113 >90 mL/min BUN/Creatinine Ratio 14.7 10.0-20.0 Serum Glucose 83 74-106 mg/dL Lactic Acid Level 1.0 0.4-2.0 mmol/L Calcium Level 9.0 8.7-10.4 mg/dL Magnesium Level 2.1 1.6-2.6 mg/dL Total Bilirubin 0.3 0.2-1.0 mg/dL Aspartate Amino Transferase (AST) 21 13-40 U/L Alanine Aminotransferase (ALT) 19 7-40 U/L Alkaline Phosphatase 99 46-116 U/L Total Protein 7.6 5.7-8.2 g/dL Albumin 4.1 3.2-4.8 g/dL Urine Color Yellow Yellow Urine Clarity Clear Clear Urine pH 6.5 5.0-9.0 Urine Specific [place] 1.025 1.001-1.035 Urine Protein Negative Negative Urine Ketones Trace Negative Urine Blood Negative Negative /uL Urine Nitrite Negative Negative Urine Bilirubin Negative Negative Urine Urobilinogen Normal Negative mg/dL Urine Leukocyte Esterase Negative Negative /uL Urine RBC 1 0 - 4 /hpf Urine Microscopic WBC 2 0-5 /HPF Urine Squamous Epithelial Cells Few <5 /hpf Urine Bacteria None seen None Seen /hpf Urine Mucus Few None Seen Urine Glucose Normal Normal mg/dL Plan/Recommendation [place] [facility] Note # Demographics Consult Type: General Neurology Patient Location: Emergency Room First Name: Ynes Last Name: Rob Date of : 1985 Age: 40 Gender: Female Facility: [facility] Time of Initial Page (): 07/09/2025 09:52 First Contact with Site (): 07/09/2025 09:53 # HPI History: 40 y/o woman with hx of seizures, bipolar disorder who presented yesterday for two seizures in the last week. Is on Keppra 1500mg BID, Lamotrigine 25mg daily and Depakote 500mg BID. With the seizures she had a fall and hit her head. Patient reports no clear provoking factor for breakthrough seizure. Has had seizures since age 5, says they occur daily. Also has a VNS. # Scores Time of exam and NIHSS (): 07/09/2025 09:59 Level of Consciousness 1a: [0] = Alert; keenly responsive LOC Questions 1b: [0] = Answers both questions correctly LOC Commands 1c: [0] = Performs both tasks correctly Best Gaze 2: [0] = Normal Visual 3: [0] = No visual loss Facial Palsy 4: [0] = Normal symmetrical movements Motor Arm Left 5a: [0] = No drift Motor Arm Right 5b: [0] = No drift Motor Leg Left 6a: [0] = No drift Motor Leg Right 6b: [0] = No drift Limb Ataxia 7: [0] = Absent Sensory 8: [0] = Normal Best Language 9: [0] = No aphasia Dysarthria 10: [0] = Normal Extinction and Inattention 11: [0] = No abnormality NIHSS Total: 0 # Assessment Impression: - Seizure # Plan Other: - If patient has any neurological deterioration please call me back immediately Additional Recommendations: Continue home meds at baseline doses for now. Can check Depakote and Lamictal levels. If Depakote level is low, consider increasing to 750mg BID. Lamictal level will take more time, but if the Depakote level is normal and the Lamictal level is low can consider increasing Lamictal to 25mg BID. # Demographics First Name: Ynes Last Name: Rob Facility: [facility] Plan discussed with: Patient KENRICK RICO MD Jul 09, 2025 10:15
[2025-07-09 11:59] LABS: Hematocrit 42.5 % (36.0-46.0); Hemoglobin 14.3 g/dL (12.2-16.2); Mean Corpuscular Hemoglobin 29.3 pg (28.0-32.0); Mean Corpuscular Volume 87.4 fL (80.0-100.0); Nucleated Red Blood Cells % 0.0 %
[2025-07-09 12:13] LABS: Alanine Aminotransferase 24 U/L (7-40); Albumin 4.0 g/dL (3.2-4.8); Alkaline Phosphatase 98 U/L (46-116); Anion Gap 10 (5-15); BUN/Creatinine Ratio 17.7 (10.0-20.0); Blood Urea Nitrogen 11 mg/dL (9-23); Calcium 8.9 mg/dL (8.7-10.4); Carbon Dioxide 26 mmol/L (20-31); Chloride 104 mmol/L (98-107); Potassium 4.1 mmol/L (3.5-5.1); Sodium 140 mmol/L (136-145); Total Protein 7.2 g/dL (5.7-8.2)
[2025-07-09 12:14] LABS: Bilirubin, Total 0.3 mg/dL (0.2-1.0); Glucose 113 mg/dL (74-106)
[2025-07-09] MEDS: levETIRAcetam 1000 mg/100ml 100 ML IV ONE (14:29)
[2025-07-09] MEDS: levETIRAcetam 500 MG TAB PO ONE (14:34)
[2025-07-09 17:41] VITALS: BP 103/70; PULSE 83; RESP 20; TEMP 97.6; O2SAT 93
[2025-07-09] MEDS ORDERED: KEP500T PO (18:20)
[2025-07-09] MEDS ORDERED: DIVA-91 PO (18:20)
== END 2025-07-09 17:41 | disposition home or self-care (01) ==
LOC: EDBD 08:47 → EDUNIT# 08:47 → ER 08:47 → UNDOADMIN 12:09 → OVERFLOW 12:09 → ER 12:13
DX: G40.909 Epilepsy, unspecified, not intractable, without status epilepticus (principal); S09.8XXA Other specified injuries of head, initial encounter; E03.9 Hypothyroidism, unspecified; F31.9 Bipolar disorder, unspecified; Z79.899 Other long term (current) drug therapy; W18.39XA Other fall on same level, initial encounter; Y93.89 Activity, other specified; Y92.89 Other specified places as the place of occurrence of the external cause; Y99.8 Other external cause status
CPT/HCPCS: 36415; 70450; 80053; 80164; 81001; 82542; 83605; 83735; 84484; 85025; 96374; 96375; 96376; 99285; J1953; J2060

== ENCOUNTER 2025-07-17 17:38 | Emergency (ER) | payer OTHER, MEDICAID ==
[~2025-07-17] VITALS: Ht 162.6 cm; Wt 100.0 kg
[~2025-07-17 17:38] MED LIST changes: +DIVA-91 PO; +KEP500T PO
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
--- NOTE | 2025-07-17 19:12 | DVH ---
EXAM: XY L KNEE 3V XRAY INDICATION: left knee pain TECHNIQUE: 2 views of the left knee COMPARISON: None FINDINGS/IMPRESSION: No radiographic evidence of an acute osseous abnormality. There is no acute fracture, osseous malalig nment, or aggressive focal osseous lesion. Medial and laterally applied plate and screw construct of the proximal tibia. Surrounding subcutaneous adipose tissue edema. Proximal fibular oblique diaphyse al fracture with evidence of at least 1/2 shaft width displacement. Diffusely decreased bone mineral density.
--- NOTE | 2025-07-17 22:51 | DVH ---
CHEST RADIOGRAPH Indication: preop Technique: Single frontal view of the chest was obtained COMPARISON: XY CHEST XRAY 1 VIEW on DOS: 05/07/25 FINDINGS: Lines and Tubes: None. Neurostimulator generator overlies the left anterior chest wall. Lungs: Clear Pleura: No effusion. No pneumothorax. Cardiomediastinal contours: Unremarkable Bones: Unremarkable IMPRESSION: 1. No radiographic evidence of acute cardiopulmonary abnormality.
--- NOTE | 2025-07-17 22:52 | DVH ---
EXAM: XY L TIB FIB XRAY, XY L ANKLE 3 VIEW CLINICAL INDICATION: fall TECHNIQUE: XY L TIB FIB XRAY 3m v, XY L ANKLE 3 VIEW Comparison: XY L ANKLE 3 VIEW on DOS: 07/17/25, XY L KNEE 3V XRAY on DOS: 07/17/25 FINDINGS/IMPRESSION: Status post ORIF of the distal tibia and fibula with displaced distal tibia and fibular shaft comminu iain fractures. These appear acute. Correlate with prior radiographs.
[2025-07-17 23:30] LABS: Hematocrit 41.1 % (36.0-46.0); Hemoglobin 13.8 g/dL (12.2-16.2); Mean Corpuscular Hemoglobin 29.7 pg (28.0-32.0); Mean Corpuscular Volume 88.5 fL (80.0-100.0); Nucleated Red Blood Cells % 0.1 %
[2025-07-17 23:43] LABS: Chloride 105 mmol/L (98-107); Potassium 3.8 mmol/L (3.5-5.1); Sodium 143 mmol/L (136-145)
[2025-07-17 23:44] LABS: Anion Gap 11 (5-15); Calcium 9.1 mg/dL (8.7-10.4); Carbon Dioxide 27 mmol/L (20-31)
[2025-07-17 23:49] LABS: BUN/Creatinine Ratio 17.1 (10.0-20.0); Blood Urea Nitrogen 12 mg/dL (9-23); Glucose 95 mg/dL (74-106)
[2025-07-18] MEDS: MORPHINE SULFATE 4 MG/ML SYR/VIAL IV ONE
[2025-07-18] MEDS: levETIRAcetam 500 MG TAB PO ONE (00:01)
[2025-07-18] MEDS: ONDANSETRON HCL 4 MG/2 ML VIAL IV ONE (02:49)
[2025-07-18] MEDS: HYDROmorphone HCL 2 MG/ML VL/or syr IV ONE (02:55)
[2025-07-18 03:33] VITALS: O2SAT 97
[2025-07-18 03:55] VITALS: BP 100/52; PULSE 74; RESP 13; TEMP 97.8; O2SAT 97
== END 2025-07-18 04:42 | disposition short-term general hospital (02) ==
LOC: ER 17:38 → EDBD 17:38 → ER 07-18 04:42
DX: S82.832A Other fracture of upper and lower end of left fibula, initial encounter for closed fracture (principal); S82.202A Unspecified fracture of shaft of left tibia, initial encounter for closed fracture; F91.9 Conduct disorder, unspecified; R56.9 Unspecified convulsions; Z79.899 Other long term (current) drug therapy; W18.39XA Other fall on same level, initial encounter; Y93.89 Activity, other specified; Y92.89 Other specified places as the place of occurrence of the external cause; Y99.8 Other external cause status
CPT/HCPCS: 36415; 71045; 73562; 73590; 73610; 80048; 85025; 96374; 96375; 99285; J1171; J2405; 29505

== ENCOUNTER 2025-09-14 01:21 | Inpatient (IN) | payer MEDICARE, MEDICAID ==
[~2025-09-14] VITALS: Ht 157.5 cm; Wt 91.1 kg
--- NOTE | 2025-09-14 01:46 | ECG ---
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
--- NOTE | 2025-09-14 01:57 | ED.PDOC ---
HPI (NEURO) HPI Comments HPI: Poor Historian. 40-year-old female with known history of epilepsy on multiple medications brought in by ambulance from a facility where she had a witnessed seizure lasting for approximately 40 seconds. Patient states she was asleep and the seizure woke her up from her sleep. Patient is not postictal during my initial evaluation. Patient has been all questions appropriately and follows commands. Patient states compliance with her medications. Past Medical History: Seizure, hypothyroidism, left lower extremity fracture Past Surgical History: Denies any REVIEW OF SYSTEMS: CONSTITUTIONAL: Denies acute: fever, diaphoresis, chills, generalized weakness. HEAD: Denies acute: headache, photophobia Eyes: Denies acute: Double vision, vision loss, eye pain, eye discharge. EARS: Denies acute: tinnitus, hearing loss, ear discharge, ear pain, THROAT: Denies acute: sore throat, swelling, difficulty swallowing , pain with swallowing, change in voice. NECK: Denies acute: neck pain, neck swelling, stiff neck. HEART: Denies acute : chest pain, palpitations, LUNGS: Denies acute: SOB, wheezing, cough, hemoptysis ABDOMEN: Denies acute: abdominal pain, Nausea, Vomiting, diarrhea, melena , hematemesis, hematochezia SKIN: Denies acute: rash, redness, lesions, itchiness. EXTREMITIES: Denies acute: calf pain, numbness, tingling, weakness, denies pain in extremity. Denies acute: Low back pain. Neuro: Denies acute: focal neurological deficit, motor or sensory focal neurological deficit, , confusion, dizziness, change in mental status, loss of bowel or bladder function, cauda equina like symptoms. : Denies acute: dysuria, hematuria, flank pain, increase in urinary frequency. PSYCH: Denies acute: hallucination, suicidal ideation, homicidal ideation. FEMALE: Denies acute: abnormal vaginal bleeding, foul odor, unusual discharge. PHYSICAL EXAM: General: -----no---acute distress, awake and alert. Head: normocephalic, atraumatic. No raccoon's eyes, no oro sign. Neck: supple, trachea is midline, no swelling. Throat: Normal phonation. No oral trauma. Eyes:, no erythema, no purulent discharge, no proptosis, no icterus. Heart: regular rate, regular rhythm, no significant murmur appreciated. Lungs: no apparent respiratory distress, Able to speak in full sentences. No wheezing, no rhonchi, no crackles. No stridors Clear to auscultation bilaterally. Abdomen: non tender to palpation, non distended, soft, no guarding, no rebound, + bowel sounds. Neuro: Awake, Alert, oriented to name, self, situation, follows commands patient is not postictal GCS=15. Speech is normal. Skin: no petechia, no purpura, no cyanosis, non-pale, not jaundice. Lower extremities: --no - Pitting edema no deformity, no focal swelling, no calf TTP. Noted left lower extremity brace/boot for known history of a fracture. Makes eye contact. moves all four extremities. Face: no apparent facial droop. JEANETTE ROJO-I ED COURSE: DISCLAIMER: This medical document was created using an electronic medical record system with voice recognition software and computerized dictation system. Although this document has been carefully reviewed, there might still be some phonetic and typographical errors. Occasional wrong-word or "sound-alike" substitutions may have occurred due to the inherent limitations of voice recognition software. These areas are purely typographical due to imperfections of the software prog vaishali and do not reflect any compromise in the patient's medical care. Please read the chart carefully and recognize, using context, where these substitutions have occurred. Chief Complaint: Seizure Time Seen by MD: 01:52 Reviewed Notes: Allergies Information Source: Patient Mode of Arrival: EMS Past Medical History PAST MEDICAL HISTORY: Seizures Surgical History: Denies all surgeries EQUIPMENT TECHNICIAN History: No Pertinent EQUIPMENT TECHNICIAN History Family History Family History: Reviewed,noncontributory to illness Social History Smoker: Non-Smoker Alcohol: Denies ETOH Use Drugs: Denies Drug Use Lives In: Assisted Care Was a procedure done? Was a procedure done?: No Differential Diagnosis (SZ) Seizure: Other (SEIZUREDDX include not limited to CVA, cerebellar ischemia/infarct, carotid stenosis, vertebral/carotid artery dissection,, vertebrobasillary insufficiency, Intracranial mass/infection/bleed, encepha lopathy, elctrolyte abnormality, thyroid disease, multiple sclerosis, hypoglycemia, drug toxicity, cardiac arrhythmia, sub-theraputic anti-convulsion medications, known seizure disorder, pseudo-seizure.) X-Ray, Labs, Meds, VS Vital Signs Date Time Temp Pulse Resp B/P (MAP) Pulse Ox O2 Delivery O2 Flow Rate FiO2 09/14/25 04:30 75 15 86/52 (63) 97 09/14/25 04:15 77 20 83/52 (62) 97 09/14/25 04:00 75 25 81/52 (62) 96 09/14/25 03:51 74 25 91/41 (58) 96 09/14/25 03:50 98.2 77 18 91/41 (58) 96 98.2 09/14/25 03:23 75 32 96/54 (68) 97 09/14/25 03:13 76 22 96/54 (68) 97 09/14/25 02:03 99 Nasal Cannula* 3 32 09/14/25 01:45 98.6 83 16 96/54 (68) 98 98.6 09/14/25 01:38 84 09/14/25 01:21 97.6 89 20 96/68 98 97.6 Lab Test 09/14/25 02:30 Range/Units White Blood Count 7.6 4.4-10.8 10^3/uL Red Blood Count 4.04 4.0-5.20 10^6/uL Hemoglobin 11.6 L 12.2-16.2 g/dL Hematocrit 35.9 L 36.0-46.0 % Mean Corpuscular Volume 89.0 80.0-100.0 fL Mean Corpuscular Hemoglobin 28.7 28.0-32.0 pg Mean Corpuscular Hemoglobin Concent 32.2 32.0-36.0 g/dL Red Cell Distribution Width 14.8 H 11.8-14.3 % Platelet Count 162 140-450 10^3/uL Mean Platelet Volume 8.1 6.9-10.8 fL Neutrophils (%) (Auto) 41.5 37.0-80.0 % Lymphocytes (%) (Auto) 45.4 10.0-50.0 % Monocytes (%) (Auto) 12.8 H 0.0-12.0 % Eosinophils (%) (Auto) 0.1 0.0-7.0 % Basophils (%) (Auto) 0.2 0.0-2.0 % Neutrophils # (Auto) 3.2 1.6-8.6 10 ^3/uL Lymphocytes # (Auto) 3.5 0.4-5.4 10 ^3/uL Monocytes # (Auto) 1.0 0-1.3 10 ^3/uL Eosinophils # (Auto) 0 0-0.8 10 ^3/uL Basophils # (Auto) 0 0-0.2 10 ^3/uL Nucleated Red Blood Cells 0.1 % Sodium Level 143 136-145 mmol/L Potassium Level 3.4 L 3.5-5.1 mmol/L Chloride Level 107 98-107 mmol/L Carbon Dioxide Level 27 20-31 mmol/L Anion Gap 9 5-15 Blood Urea Nitrogen 17 9-23 mg/dL Creatinine 0.80 0.550-1.02 mg/dL Glomerular Filtration Rate Calc 95 >90 mL/min BUN/Creatinine Ratio 21.3 H 10.0-20.0 Serum Glucose 94 74-106 mg/dL Calcium Level 8.2 L 8.7-10.4 mg/dL Magnesium Level 1.8 1.6-2.6 mg/dL Total Bilirubin 0.3 0.2-1.0 mg/dL Aspartate Amino Transferase (AST) 17 13-40 U/L Alanine Aminotransferase (ALT) 13 7-40 U/L Alkaline Phosphatase 101 46-116 U/L Troponin I High Sensitivity < 3 L </=34 ng/L B-Type Natriuretic Peptide 26.20 0-100 pg/mL Total Protein 6.5 5.7-8.2 g/dL Albumin 3.3 3.2-4.8 g/dL Valproic Acid Level 61.9 50-100 ug/mL Levetiracetam Level Pending X-Ray, Labs, Meds, VS Comment [address] [address] Ph: [phone] DIAGNOSTIC IMAGING Diagnostic Imaging Report : [id number] Signed PATIENT: HERLINDA WHEAT ACCT: [id number] UNIT: [id number] : 1985 LOC: OVERFLOW ROOM / BED: [address] [place] [address] / A AGE / SEX: 40 / F ADM STATUS: ADM IN SERVICE 0545 ORDERING PHYSICIAN: MARIA GUADALUPE JIANG RESIDENT PROCEDURE(s): HWOCT - HEAD WITHOUT CONTRAST REASON: Seizure disorder ORDER NUMBER(s): [id number], ACCESSION NUMBER(s): [id number] CLINICAL INFORMATION: Seizure disorder. TECHNIQUE: Axial imaging was obtained through the brain without contrast. Coronal and sagittal reformatted images were obtained, reviewed, and stored. Images were reviewed in brain and bone windows. All CT scans at this medical facility are performed using dose modulation techniques as appropriate to a performed exam including the following: Automated exposure control was utilized; adjustment of the MA and/or KV according to patient size; and use of iterative reconstruction technique. CTDIvol = 58.34 mGy DLP = 935.14 mGy-cm COMPARISON: CT HEAD WITHOUT CONTRAST on DOS: 07/08/25, CT HEAD WITHOUT CONTRAST on DOS: 04/21/25 FINDINGS: There is no acute intracranial hemorrhage. No mass effect or midline shift. The ventricles and sulci are within normal limits in size for age. Basal cisterns are patent. The calvarium is unremarkable. Paranasal sinuses and mastoid air cells are clear. Mild soft tissue swelling in the posterior scalp. IMPRESSION: 1. No CT evidence of acute intracranial abnormality. 2. Mild soft tissue swelling/possible hematoma in the posterior scalp. ATED BY: MAGED CASTILLO DO DICTATED DATE/TIME: 09/14/25730 SIGNED BY: MAGED CASTILLO DO SIGNED DATE/TIME: 09/14/25730 CC: [place] [id number] Ph: [phone] DIAGNOSTIC IMAGING Diagnostic Imaging Report : [id number] Signed PATIENT: HERLINDA WHEAT ACCT: [id number] UNIT: [id number] : 1985 LOC: ER ROOM / BED: / AGE / SEX: 40 / F ADM STATUS: REG ER SERVICE 0154 ORDERING PHYSICIAN: LARRY OLVERA DO PROCEDURE(s): CXRP - CHEST PORTABLE REASON: Seizure ORDER NUMBER(s): [id number], ACCESSION NUMBER(s): [id number] CHEST RADIOGRAPH Indication: Seizure Technique: Single frontal view of the chest was obtained COMPARISON: XY CHEST PORTABLE on DOS: 07/17/25, XY CHEST XRAY 1 VIEW on DOS: 05/07/25 FINDINGS: Lines and Tubes: None. Left chest wall generator. Lungs: Moderate diffuse increased prominence of the pulmonary vasculature. No e vidence of focal consolidation. Pleura: No effusion. No pneumothorax. Cardiomediastinal contours: Cardiomegaly. Bones: Unremarkable IMPRESSION: 1. Cardiomegaly with moderate pulmonary vascular congestion. ATED BY: ANDREA ROBLEDO MD DICTATED DATE/TIME: 09/14/25249 SIGNED BY: ANDREA ROBLEDO MD SIGNED DATE/TIME: 09/14/25249 CC: Time of 1ST Reevaluation: 04:40 (Patient states that her blood pressure is usually low but she does not know how low. Patient already received fluids to help with the her blood pressure. In light of the chest x-ray findings, I would not give any additional fluids. Patient is mentating well.) Reevaluation 1ST: Improved Patient Education/Counseling: Diagnosis, Treatment Family Education/Counseling: Other Comments MDM: patient presented with the above HPI.--seizure----workup was initiated. patient was found with the above mentioned diagnosis. the following medications were ordered: please refer to order lists of meds and tests obtained by myself Dr. Olvera. Patient ED course and VS have been stabilized. Patient has been reassessed in the ED and remained in a stable condition. Pertinent incidental findings were discussed with the patient and/or family. Patient/family voices understanding and is agreeable with plan. Patient has been observed in the ED adequate length of time to insure improvement/stability. Escalation of care considered: Consideration of escalation to observation or admission Patient was ADMITTED to the medicine team for further evaluation and treatment of their presentation. All the reports of any imaging studies that were ordered by myself were reviewed by myself. Departure 1 Departure Time of Disposition: 01:54 Impression: Primary Impression: Breakthrough seizure Additional Impressions: Hypotension Pulmonary vascular congestion Disposition: ADMITTED INPATIENT Admit to: Tele Condition: Guarded Discharged With: Self Critical Care Note Critical Care Time?: No LARRY OLVERA DO Sep 14, 2025 01:57
[2025-09-14 02:03] VITALS: O2SAT 99
[2025-09-14] MEDS: SODIUM CHLORIDE 0.9% 1,000 ML IV ONE ×2 (02:15→03:55)
[2025-09-14] MEDS: levETIRAcetam 1000 mg/100ml 100 ML IV ONE (02:15)
--- NOTE | 2025-09-14 02:53 | DVH ---
CHEST RADIOGRAPH Indication: Seizure Technique: Single frontal view of the chest was obtained COMPARISON: XY CHEST PORTABLE on DOS: 07/17/25, XY CHEST XRAY 1 VIEW on DOS: 05/07/25 FINDINGS: Lines and Tubes: None. Left chest wall generator. Lungs: Moderate diffuse increased prominence of the pulmonary vasculature. No evidence of focal consolidation. Pleura: No effusion. No pneumothorax. Cardiomediastinal contours: Cardiomegaly. Bones: Unremarkable IMPRESSION: 1. Cardiomegaly with moderate pulmonary vascular congestion.
[2025-09-14 03:10] LABS: Hematocrit 35.9 % (36.0-46.0); Hemoglobin 11.6 g/dL (12.2-16.2); Mean Corpuscular Hemoglobin 28.7 pg (28.0-32.0); Mean Corpuscular Volume 89.0 fL (80.0-100.0); Nucleated Red Blood Cells % 0.1 %
[2025-09-14 03:22] LABS: Alanine Aminotransferase 13 U/L (7-40); Albumin 3.3 g/dL (3.2-4.8); Alkaline Phosphatase 101 U/L (46-116); Anion Gap 9 (5-15); BUN/Creatinine Ratio 21.3 (10.0-20.0); Blood Urea Nitrogen 17 mg/dL (9-23); Carbon Dioxide 27 mmol/L (20-31); Chloride 107 mmol/L (98-107); Glucose 94 mg/dL (74-106); Magnesium 1.8 mg/dL (1.6-2.6); Sodium 143 mmol/L (136-145); Total Protein 6.5 g/dL (5.7-8.2)
[2025-09-14 03:30] LABS: Bilirubin, Total 0.3 mg/dL (0.2-1.0); Calcium 8.2 mg/dL (8.7-10.4); Potassium 3.4 mmol/L (3.5-5.1)
[2025-09-14] MEDS ORDERED: MORPHINE SULFATE INJ 2 MG/ml SYRG IV PRN (05:15)
[2025-09-14] MEDS ORDERED: NITROGLYCERIN 0.4 MG SL TAB SL PRN (05:15)
[2025-09-14] MEDS: SODIUM CHLORIDE 0.9% 1,000 ML IV SCH (05:16)
--- NOTE | 2025-09-14 05:34 | DVHHPRES ---
History of Present Illness Resident Creating Document: MARIA GUADALUPE JIANG RESIDENT History of Present Illness Ynes Rivas Nilda is a 40-year-old female with past medical history of seizures, bipolar disorder, and hypothyroidism who presents to the ED from skilled nursing with a complaint of breakthrough seizure. Record obtain from chart review, patient having episode of seizure at 10:00 p.m. day before admission and skilled nursing staff call 911 on brought patient to hospital. Patient currently AO x3-4. Denies any trauma, loss of consciousness or any other acute distress. Neurology consulted on recommended continue seizure medication. As per patient, skilled nursing staff provided antiseizure medication twice a day. Compliance with medication. Denies any fever, SOB, dysuria, or any acute distress. Patient had left ankle surgery recently and need walker for ambulation. Past medical history: As above Past surgical history: Left ankle surgery Family history: Nothing contributory Personal history: Denies any smoking illicit drug or EtOH use Social history: Lives in a skilled nursing. Review of Systems Constitutional: Yes: Weakness, Malaise; No: Fever, Chills, Sweats, Other Eyes: No: Pain, Vision change, Conjunctivae inflammation, Eyelid inflammation, Other, Redness ENT: No: Ear pain, Ear discharge, Nose pain, Nose discharge, Nose congestion, Mouth pain, Mouth swelling, Throat pain, Throat swelling, Other Respiratory: No: Cough, Dry, Shortness of breath, SOB with excertion, Wheezing, Hemoptysis, Pleuritic Pain, Sputum, Wheezing, Other Cardiovascular: No: Chest Pain, Palpitations, Orthopnea, Paroxysmal Noc. Dyspnea, Edema, Lt Headedness, Other Gastrointestinal: No: Nausea, Vomiting, Abdominal Pain, Diarrhea, Constipation, Melena, Hematochezia, Other Genitourinary: No Dysuria, No Frequency, No Incontinence, No Hematuria, No Retention, No Other Musculoskeletal: other (Gait instability); No: neck pain, shoulder pain, arm pain, back pain, hand pain, leg pain, foot pain Skin: Other (Left ankle surgical scar audra); No: Rash, Lesions, Jaundice, Bruising Neurological: Other Allergies: Coded Allergies: NO KNOWN ALLERGIES (Unverified , 04/21/25) Medications Current Medications Medications Dose Ordered Sig/Chayo Route Start Time Stop Time Status Last Admin Dose Admin Sodium Chloride 1,000 ml @ 120 mls/hr Q8H20M IV 09/14/25 05:15 09/14/25 05:16 120 MLS/HR Nitroglycerin 0.4 mg Q5MINP PRN SL 09/14/25 05:15 Morphine Sulfate 2 mg Q30M PRN IV 09/14/25 05:15 Levetiracetam 500 mg BID PO 09/14/25 10:00 Divalproex Sodium 500 mg BID PO 09/14/25 10:00 Pantoprazole Sodium 40 mg DAILY@0600 PO 09/14/25 06:00 UNV Exam Vital Signs Vital Signs Date Time Temp Pulse Resp B/P (MAP) Pulse Ox O2 Delivery O2 Flow Rate FiO2 09/14/25 04:30 75 15 86/52 (63) 97 09/14/25 03:50 98.2 98.2 09/14/25 02:03 Nasal Cannula* 3 32 General Appearance: Alert, Oriented X3, mild distress HEENT: Atraumatic, PERRLA, EOMI Respiratory: Clear to auscultation, Normal air movement Cardiovascular: Regular rate, Normal S1, Normal S2, No murmurs Abdominal: Normal bowel sounds, Soft, No tenderness Extremities: No clubbing, No cyanosis, No edema, Normal pulses, Other Skin: No rashes, No breakdown Neuro: Other (Gait instability) Labs/Xrays Labs Test 09/14/25 02:30 Range/Units White Blood Count 7.6 4.4-10.8 10^3/uL Red Blood Count 4.04 4.0-5.20 10^6/uL Hemoglobin 11.6 L 12.2-16.2 g/dL Hematocrit 35.9 L 36.0-46.0 % Mean Corpuscular Volume 89.0 80.0-100.0 fL Mean Corpuscular Hemoglobin 28.7 28.0-32.0 pg Mean Corpuscular Hemoglobin Concent 32.2 32.0-36.0 g/dL Red Cell Distribution Width 14.8 H 11.8-14.3 % Platelet Count 162 140-450 10^3/uL Mean Platelet Volume 8.1 6.9-10.8 fL Neutrophils (%) (Auto) 41.5 37.0-80.0 % Lymphocytes (%) (Auto) 45.4 10.0-50.0 % Monocytes (%) (Auto) 12.8 H 0.0-12.0 % Eosinophils (%) (Auto) 0.1 0.0-7.0 % Basophils (%) (Auto) 0.2 0.0-2.0 % Neutrophils # (Auto) 3.2 1.6-8.6 10 ^3/uL Lymphocytes # (Auto) 3.5 0.4-5.4 10 ^3/uL Monocytes # (Auto) 1.0 0-1.3 10 ^3/uL Eosinophils # (Auto) 0 0-0.8 10 ^3/uL Basophils # (Auto) 0 0-0.2 10 ^3/uL Nucleated Red Blood Cells 0.1 % Sodium Level 143 136-145 mmol/L Potassium Level 3.4 L 3.5-5.1 mmol/L Chloride Level 107 98-107 mmol/L Carbon Dioxide Level 27 20-31 mmol/L Anion Gap 9 5-15 Blood Urea Nitrogen 17 9-23 mg/dL Creatinine 0.80 0.550-1.02 mg/dL Glomerular Filtration Rate Calc 95 >90 mL/min BUN/Creatinine Ratio 21.3 H 10.0-20.0 Serum Glucose 94 74-106 mg/dL Calcium Level 8.2 L 8.7-10.4 mg/dL Magnesium Level 1.8 1.6-2.6 mg/dL Total Bilirubin 0.3 0.2-1.0 mg/dL Aspartate Amino Transferase (AST) 17 13-40 U/L Alanine Aminotransferase (ALT) 13 7-40 U/L Alkaline Phosphatase 101 46-116 U/L Troponin I High Sensitivity < 3 L </=34 ng/L B-Type Natriuretic Peptide 26.20 0-100 pg/mL Total Protein 6.5 5.7-8.2 g/dL Albumin 3.3 3.2-4.8 g/dL Valproic Acid Level 61.9 50-100 ug/mL SEPSIS Sepsis Screen Date sepsis recognized/suspect: Sep 14, 2025 Time Sepsis recognized/suspect: 0206 Recent Procedure: No On Antibiotic Therapy: No Respiratory Rate >20: No Heart Rate >90: No Temp<36 C (96.8 F) or >38.3 C: No SBP <90 or MAP <65 mmHG: No New Acute Mental Status Change: No Is the patient on CPAP, BIPAP,: No Physician Orders Mineral Technologist (09/14/25 ) Seizure Precautions (09/14/25 ) Urinalysis (09/14/25 01:54) Chest Portable (09/14/25 01:54) Levetiracetam (Keppra) (09/14/25 01:54) Admit (09/14/25 05:08) Code Status (09/14/25 05:08) Sodium Chloride 0.9% (09/14/25 05:15) Nitroglycerin Sublingual (Ntrostat Subli (09/14/25 05:15) Morphine Sulfate Injection (09/14/25 05:15) Oxygen By Nasal Cannula (09/14/25 05:08) Stat Ekg For Chest Pain (09/14/25 05:08) Notify Of Changes From Base (09/14/25 05:08) Manufacturing Assembler For 24 Hours (09/14/25 05:08) Emergency Dysrhythmia Protocol (09/14/25 05:08) Rhythm Strips Once Every Shift (09/14/25 05:08) Levetiracetam Tablet (Keppra Tablet) (09/14/25 10:00) Divalproex Dr Tablet (Depakote "Dr" Tabl (09/14/25 10:00) Pantoprazole Tablet (Protonix Tablet) (09/14/25 06:00) Potassium Er Tablet (Klor-Con Tablet) (09/14/25 05:30) Magnesium Blake (09/14/25 05:30) Vital Signs Date Time Temp Pulse Resp B/P (MAP) Pulse Ox O2 Delivery O2 Flow Rate FiO2 09/14/25 04:30 75 15 86/52 (63) 97 09/14/25 04:15 77 20 83/52 (62) 97 09/14/25 04:00 75 25 81/52 (62) 96 09/14/25 03:51 74 25 91/41 (58) 96 09/14/25 03:50 98.2 77 18 91/41 (58) 96 98.2 09/14/25 03:23 75 32 96/54 (68) 97 09/14/25 03:13 76 22 96/54 (68) 97 09/14/25 02:03 99 Nasal Cannula* 3 32 09/14/25 01:45 98.6 83 16 96/54 (68) 98 98.6 09/14/25 01:38 84 09/14/25 01:21 97.6 89 20 96/68 98 97.6 Laboratory Tests Test 09/14/25 02:30 White Blood Count 7.6 10^3/uL (4.4-10.8) Medications Medications Dose Ordered Sig/Chayo Route Start Time Stop Time Status Last Admin Dose Admin Levetiracetam 100 ml @ 400 mls/hr ONCE ONCE IV 09/14/25 02:00 09/14/25 02:14 DC 09/14/25 02:15 400 MLS/HR Sodium Chloride 1,000 ml @ 120 mls/hr Q8H20M IV 09/14/25 05:15 09/14/25 05:16 120 MLS/HR Sodium Chloride 1,000 ml @ 1,000 mls/hr Q1H ONCE IV 09/14/25 02:00 09/14/25 02:59 DC 09/14/25 02:15 1,000 MLS/HR Sodium Chloride 1,000 ml @ 1,000 mls/hr Q1H ONCE IV 09/14/25 03:55 09/14/25 04:54 DC 09/14/25 03:55 1,000 MLS/HR Assessment/Plan Assessment/Plan Breakthrough seizures History of the epilepsy In ER patient received NSS, levetiracetam. EKG: sinus rhythm, heart rate 84, QTC 483 CXR: Cardiomegaly with moderate pulmonary vascular congestion. valproic acid level is 61.9 levetiracetam level pending Troponin: <3 UA Magnesium: 1.8 BNP: 26.20 Levetiracetam Divalproex Ativan seizure protocol Seizure precaution CK level CT head wo contrast. Neurology consult as per primary team Anemia of chronic disease Hemoglobin 11.6, HCT 35.9 MCV 89 point, RDW 14.8 Hypokalemia position 3.4, supplemented BMP Bipolar disease Depression Sertraline Trazodone Morbid obesity, BMI 35.6 Lifestyle modification Diet: Regular GI prophylaxis: Pantoprazole DVT: Lovenox Goals of care discussions. More than 29 minute spent on admission. Full code status. Medication reconciliation as well primary team. Case discussed with Dr. Vail Plan discussed with: Patient, Other (Nurse) My Orders Orders - MARIA GUADALUPE JIANG Procedure Category Date Status Time Admit ADMIT 09/14/25 Transmitted 05:08 Code Status CODE 09/14/25 Transmitted 05:08 Sodium Chloride 0.9% PHA 09/14/25 In Process 05:15 Nitroglycerin [facility] 09/14/25 In Process Sublingual (Ntrostat 05:15 Morphine Sulfate PHA 09/14/25 In Process Injection 05:15 Oxygen By Nasal RT 09/14/25 Transmitted Cannula 05:08 Stat Ekg For Chest [facility] [place] 09/14/25 In Process Pain 05:08 Notify Md Of Changes [facility] [place] 09/14/25 In Process From Base 05:08 Manufacturing Assembler For [facility] [place] 09/14/25 In Process 24 Hours 05:08 Emergency Dysrhythmia [facility] [place] 09/14/25 In Process Protocol 05:08 Rhythm Strips Once [facility] [place] 09/14/25 In Process Every Shift 05:08 Levetiracetam Tablet [facility] 09/14/25 In Process (Keppra Tablet) 10:[address] Tablet [facility] 09/14/25 In Process (Depakote "Dr" Tabl 10:00 Pantoprazole Tablet [facility] 09/14/25 Logged (Protonix Tablet) 06:00 Potassium Er Tablet [facility] 09/14/25 Logged (Klor-Con Tablet) 05:30 Magnesium Blake [facility] 09/14/25 Verified 05:30 Visit Coding STANDARD RES Billing Provider: DERICK VAIL MD Date of Service if different f: Sep 14, 2025 Common Visit Codes: 80515-[id number] INP/OBS CARE (HIGH) Secondary Visit Codes: 03733-[id number] CARE PLAN 30 MINUTES MARIA GUADALUPE JIANG Sep 14, 2025 05:33
[2025-09-14] MEDS: POTASSIUM CHL 20 Meq TABLET PO ONE (06:02)
[2025-09-14] MEDS: MAGNESIUM SULFATE 1GM/100ML 100 ML IV ONE (06:02)
[2025-09-14] MEDS: PANTOPRAZOLE 40 MG TAB PO SCH (06:02)
[2025-09-14] MEDS: SODIUM CHLORIDE 0.9% 500 ML IV ONE (06:37)
--- NOTE | 2025-09-14 07:34 | DVH ---
CLINICAL INFORMATION: Seizure disorder. TECHNIQUE: Axial imaging was obtained through the brain without contrast. Coronal and sagittal reformatted images were obtained, reviewed, and stored. Images were reviewed in brain and bone windows. All CT scans at this medical facility are performed using dose modulation techniques as appropriate to a performed exam including the following: Automated exposure control was utilized; adjustment of the MA and/or KV according to patient size; and use of iterative reconstruction technique. CTDIvol = 58.34 mGy DLP = 935.14 mGy-cm COMPARISON: CT HEAD WITHOUT CONTRAST on DOS: 07/08/25, CT HEAD WITHOUT CONTRAST on DOS: 04/21/25 FINDINGS: There is no acute intracranial hemorrhage. No mass effect or midline shift. The ventricles and sulci are within normal limits in size for age. Basal cisterns are patent. The calvarium is unremarkable. Paranasal sinuses and mastoid air cells are clear. Mild soft tissue swelling in the posterior scalp. IMPRESSION: 1. No CT evidence of acute intracranial abnormality. 2. Mild soft tissue swelling/possible hematoma in the posterior scalp.
[2025-09-14 08:47] LABS: Hematocrit 38.7 % (36.0-46.0); Hemoglobin 12.4 g/dL (12.2-16.2); Mean Corpuscular Hemoglobin 28.7 pg (28.0-32.0); Mean Corpuscular Volume 89.7 fL (80.0-100.0); Nucleated Red Blood Cells % 0.2 %
[2025-09-14 09:01] LABS: Potassium 4.1 mmol/L (3.5-5.1); Sodium 141 mmol/L (136-145)
[2025-09-14 09:02] LABS: Anion Gap 7 (5-15); Carbon Dioxide 25 mmol/L (20-31)
[2025-09-14 09:04] LABS: Chloride 109 mmol/L (98-107)
[2025-09-14 09:07] LABS: Glucose 95 mg/dL (74-106)
[2025-09-14 09:08] LABS: BUN/Creatinine Ratio 15.2 (10.0-20.0); Blood Urea Nitrogen 12 mg/dL (9-23); Creatine Kinase IFCC 35 U/L (34-145); Magnesium 2.0 mg/dL (1.6-2.6); Triglycerides 112 mg/dL (< 150)
[2025-09-14 09:09] LABS: Cholesterol 144 mg/dL (< 200)
[2025-09-14 09:15] LABS: Calcium 8.2 mg/dL (8.7-10.4); HDL Cholesterol 31 mg/dL (40-59)
[2025-09-14 09:26] VITALS: PULSE 71; RESP 17; O2SAT 98
[2025-09-14] MEDS: levETIRAcetam 500 MG TAB PO SCH (10:00)
[2025-09-14 22:32] VITALS: BP 96/70; PULSE 72; RESP 18; TEMP 98; O2SAT 95
[2025-09-15] VITALS (8 sets, daily range): BP systolic 94–102; BP diastolic 56–71; PULSE 57–101; RESP 17–20; TEMP 97–99.3; O2SAT 94–99
[2025-09-15 12:20] LABS: Urine Protein, UAD Negative (Negative)
[2025-09-15 12:33] LABS: Amphetamine Screen, Urine Neg (NEGATIVE); Barbiturate Scree,Urine Neg (NEGATIVE); Benzodiazephine Screen, Urine Neg (NEGATIVE); Cannabinoid Screen, Urine Neg (NEGATIVE); Cocaine Screen, Urine Neg (NEGATIVE); Opiate Scree,Urine Neg (NEGATIVE); Phencyclidine Screen, Urine Neg (NEGATIVE)
[2025-09-15] MEDS: LORazepam 2MG/ML-1ML VIAL IV PRN (15:23)
--- NOTE | 2025-09-15 17:18 | DVHPN2 ---
Subjective No further seizures Reviewed: H&P Changes from previous H/P or p: No Changes Eyes: No Pain, No Vision change, No Conjunctivae inflammation, No Eyelid inflammation, No Other, No Redness ENT: No Ear pain, No Ear discharge, No Nose pain, No Nose discharge, No Nose congestion, No Mouth pain, No Mouth swelling, No Throat pain, No Throat swelling, No Other Cardiovascular: No Chest Pain, No Palpitations, No Orthopnea, No Paroxysmal Noc. Dyspnea, No Edema, No Lt Headedness, No Other Respiratory: No Cough, No Dry, No Shortness of breath, No SOB with excertion, No Wheezing, No Hemoptysis, No Pleuritic Pain, No Sputum, No Other Gastrointestinal: No Nausea, No Vomiting, No Abdominal Pain, No Diarrhea, No Constipation, No Melena, No Hematochezia, No Other Genitourinary: No Dysuria, No Frequency, No Incontinence, No Hematuria, No Retention, No Other Musculoskeletal: other (Gait instability); No neck pain, No shoulder pain, No arm pain, No back pain, No hand pain, No leg pain, No foot pain Skin: No Rash, No Lesions, No Jaundice, No Bruising; Other (Left ankle surgical scar audra) Objective Vitals Vital Signs Date Time Temp Pulse Resp B/P (MAP) Pulse Ox O2 Delivery O2 Flow Rate FiO2 09/15/25 13:00 97.9 62 18 101/69 (80) 97 97.9 09/14/25 22:32 Room Air* 0 21 Intake/Output Intake and Output 09/15/25 05:00 Intake Total 0 ml Balance 0 ml Intake Oral 0 ml General Appearance: Alert, Oriented X3 HEENT: Atraumatic Lungs: Clear to auscultation Cardiovascular: Regular rate, Normal S1 Abdomen: Normal bowel sounds Medications Current Medications Medications Dose Ordered Sig/Chayo Route Start Time Stop Time Status Last Admin Dose Admin Sodium Chloride 1,000 ml @ 120 mls/hr Q8H20M IV 09/14/25 05:15 09/15/25 14:35 120 MLS/HR Nitroglycerin 0.4 mg Q5MINP PRN SL 09/14/25 05:15 Morphine Sulfate 2 mg Q30M PRN IV 09/14/25 05:15 Levetiracetam 500 mg BID PO 09/14/25 10:00 09/15/25 10:18 500 MG Divalproex Sodium 500 mg BID PO 09/14/25 10:00 09/15/25 10:18 500 MG Pantoprazole Sodium 40 mg DAILY@0600 PO 09/14/25 06:00 09/15/25 05:23 40 MG Lorazepam 1 mg Q5MINP PRN IV 09/14/25 22:00 09/15/25 15:23 1 MG Laboratory Results Laboratory Tests 09/14/25 08:33 Urinalysis Test 09/15/25 11:50 Urine Color Colorless (Yellow) Urine Clarity Clear (Clear) Urine pH 6.5 (5.0-9.0) Urine Specific [place] 1.010 (1.001-1.035) Urine Protein Negative (Negative) Urine Ketones Negative (Negative) Urine Blood Negative /uL (Negative) Urine Nitrite Negative (Negative) Urine Bilirubin Negative (Negative) Urine Urobilinogen Normal mg/dL (Negative) Urine Leukocyte Esterase 2+ /uL (Negative) Urine RBC 1 /hpf (0 - 4) Urine Microscopic WBC 10 /HPF (0-5) H Urine Squamous Epithelial Cells Few /hpf (<5) Urine Bacteria None seen /hpf (None Seen) Urine Glucose Normal mg/dL (Normal) Assessment/Plan Assessment/Plan Breakthrough seizures History of the epilepsy In ER patient received NSS, levetiracetam. EKG: sinus rhythm, heart rate 84, QTC 483 CXR: Cardiomegaly with moderate pulmonary vascular congestion. valproic acid level is 61.9 levetiracetam level pending Consult neurology Anemia of chronic disease Hemoglobin 11.6, HCT 35.9 MCV 89 point, RDW 14.8 Hypokalemia position 3.4, supplemented BMP Bipolar disease Depression Sertraline Trazodone Morbid obesity, BMI 35.6 Lifestyle modification Plan discussed with: Patient My Orders Orders - NELA HERNANDEZ MD Procedure Category Date Status Time * Neurology Consult CONS 09/15/25 Transmitted 08:00 Date of Service: Sep 15, 2025 Billing Provider: NELA HERNANDEZ MD Common Visit Codes: [id number] INP/OBS CARE(HIGH) NELA HERNANDEZ MD Sep 15, 2025 17:18
--- NOTE | 2025-09-15 22:48 | DVHINCON2 ---
Date of service: Sep 15, [address] Cruz Reason for Consultation Seizure History of Present Illness 09/14/25 Poor Historian. 40-year-old female with known history of epilepsy on multiple medications brought in by ambulance from a facility where she had a witnessed seizure lasti ng for approximately 40 seconds. Patient states she was asleep and the seizure woke her up from her sleep. Patient is not postictal during my initial evaluation. Patient has been all questions appropriately and follows commands. Patient states compliance with her medications. Ms. Rivas is a 40 years old right-handed female with a history of seizure disorder, bipolar disorder, hypothyroidism, she was brought to the [facility] on 09/14/2025 with a chief complaint of seizure activity. At this time, she is alert, fully oriented, she provided the following history. I saw her on 05/09/2025 for seizure She was awakened by her seizures 6 times in the night on 09/14/2025. He reports on waking up, she had shaking all over the body for seconds of time, and she remember all the seizures. She had urinary incontinence, but no biting She has a seizure disorder since age of [age], the seizure was spells of event where she had shaking in the upper portion of body, arms, eyes spacing out, lasts for about 20 sec, and she woke up right after the shaking was over She remembers some the seizure activity in that she was shaking all over the body She has seen many neurologists, including one in the [facility], she sees Dr. Claros. She does not remember her seizure medications, but she reports a good compliance because her caregiver gives medication to her. According to our record, she was on the following medications: Keppra 1500 mg b.i.d., Depakote 500 mg 1.5 tablets b.i.d He denies a history of head trauma, intracranial infection, family history of seizure disorder prior the age of [age] Depakote 09/14/2025: 61.9 UDS, 09/15/2025: Negative Urinalysis, 09/15/2025: WBC: 10, urine leukocyte esterase: 2+ CBC, 09/14/2025: Unremarkable BMP, 09/14/2025: Unremarkable HGB A1c, 09/14/2025: 5.1 Fever function tests, 09/14/2025: Unremarkable TG/HDL/LDL/HDL, 09/14/2025: 112/144/93/31 Vitamin B12, 09/14/25: 565 TSH, 09/14/2025: 4093 CT head, 04/21/2025: No acute intracranial abnormality CT head, 09/14/2025: 1. No CT evidence of acute intracranial abnormality. 2. Mild soft tissue swelling/possible hematoma in the posterior scalp. Past Medical History Bipolar disorder, hypothyroidism, seizure, obesity Past Surgical History Multiple surgeries in both lower extremities for fracture Family History: Arthritis G8 MOTHER FH: lung cancer Thyroid disease G8 MOTHER Family History Thyroid disorder, lung cancer Social History She denies history of tobacco smoking, drug/alcohol abuse. She does not drive Allergies: Coded Allergies: NO KNOWN ALLERGIES (Unverified , 04/21/25) Home Meds Active Scripts Divalproex Sodium (Depakote) 500 Mg Tab, 1.5 TAB PO BID for 30 Days, #90 TAB 1 Refill Prov:LARRY OLVERA DO 07/09/25 Levetiracetam (KEPPRA TABLET) 500 Mg Tb, 1500 MG PO BID for 30 Days, #180 TAB Prov:LARRY OLVERA DO 07/09/25 Ibuprofen (Ibuprofen) 800 Mg Tab, 1 TAB PO TID, #30 TAB Prov:CHANDANA VELARDE 05/01/25 Review of Systems As above, the other systems are negative Vital Signs Vital Signs Date Time Temp Pulse Resp B/P (MAP) Pulse Ox O2 Delivery O2 Flow Rate FiO2 09/15/25 21:00 97.0 82 19 102/68 (79) 98 97.0 09/15/25 08:00 Room Air* 0 97 21 Physical Exam GENERAL EXAM: General: the patient is well developed and nourished. No acute distress. HEENT: Normocephalic, neck is supple, no carotid bruits. No mass. RESPIRATORY: Normal respiratory effort with symmetrical lung expansion. Lungs clear to auscultation. CARDIOVASCULAR: Regular rate and rhythm with no murmurs. S1, S2. ABDOMEN: Soft, nontender, normal bowel sound NEUROLOGICAL: MENTAL STATUS: Awake and alert. Oriented to person, place, time and general circumstances. Able to give personal history. SPEECH, LANGUAGE, HIGHER CORTICAL FUNCTION: no aphasia or dysathria. CRANIAL NERVES: #2: Intact visual jiménez to confrontation. The optic discs were sharp. #3,4,6: Pupils are equal, round and reactive. EOMs full and conjugate. No nystagmus. #5: Facial sensation intact in all three divisions bilaterally. Mandibular strength intact. #7: Facial muscles symmetrical and strength intact. #8: Hearing grossly normal to voice. #9,10: Uvula and soft palate rise in the midline. Swallow and voice are normal. #11: Trapezius and sternomastoid strength intact bilaterally. #12: Tongue midline. No fasciculations or atrophy. SENSATION: Sensation to touch and pinprick is normal. MOTOR: Normal tone in the upper and lower extremity. Normal muscle bulk. No fasciculations. No abnormal movements or posturing. Muscle strength of the major groups in the upper extremities is 5/5. Muscle strength of the major groups in the lower extremities is 5/5. REFLEXES: Deep tendon reflexes normal and symmetrical. No pathological reflexes. CEREBELLAR/COORDINATION: Finger to nose is normal bilaterally. GAIT/STATION: deferred Labs/Diagnostic Data Labs Test 09/15/25 11:50 09/14/25 08:33 09/14/25 02:30 Range/Units Urine Color Colorless Yellow Urine Clarity Clear Clear Urine pH 6.5 5.0-9.0 Urine Specific [place] 1.010 1.001-1.035 Urine Protein Negative Negative Urine Ketones Negative Negative Urine Blood Negative Negative /uL Urine Nitrite Negative Negative Urine Bilirubin Negative Negative Urine Urobilinogen Normal Negative mg/dL Urine Leukocyte Esterase 2+ Negative /uL Urine RBC 1 0 - 4 /hpf Urine Microscopic WBC 10 H 0-5 /HPF Urine Squamous Epithelial Cells Few <5 /hpf Urine Bacteria None seen None Seen /hpf Urine Glucose Normal Normal mg/dL Urine Opiates Screen Neg NEGATIVE Urine Fentanyl Screen Neg NEGATIVE Urine Barbiturates Screen Neg NEGATIVE Urine Phencyclidine Screen Neg NEGATIVE Urine Amphetamines Screen Neg NEGATIVE Urine Benzodiazepines Screen Neg NEGATIVE Urine Cocaine Screen Neg NEGATIVE Urine Cannabinoids Screen Neg NEGATIVE White Blood Count 6.4 4.4-10.8 10^3/uL Red Blood Count 4.32 4.0-5.20 10^6/uL Hemoglobin 12.4 12.2-16.2 g/dL Hematocrit 38.7 36.0-46.0 % Mean Corpuscular Volume 89.7 80.0-100.0 fL Mean Corpuscular Hemoglobin 28.7 28.0-32.0 pg Mean Corpuscular Hemoglobin Concent 31.9 L 32.0-36.0 g/dL Red Cell Distribution Width 14.7 H 11.8-14.3 % Platelet Count 155 140-450 10^3/uL Mean Platelet Volume 7.8 6.9-10.8 fL Neutrophils (%) (Auto) 42.5 37.0-80.0 % Lymphocytes (%) (Auto) 46.9 10.0-50.0 % Monocytes (%) (Auto) 10.5 0.0-12.0 % Eosinophils (%) (Auto) 0.0 0.0-7.0 % Basophils (%) (Auto) 0.1 0.0-2.0 % Neutrophils # (Auto) 2.7 1.6-8.6 10 ^3/uL Lymphocytes # (Auto) 3.0 0.4-5.4 10 ^3/uL Monocytes # (Auto) 0.7 0-1.3 10 ^3/uL Eosinophils # (Auto) 0 0-0.8 10 ^3/uL Basophils # (Auto) 0 0-0.2 10 ^3/uL Nucleated Red Blood Cells 0.2 % Sodium Level 141 136-145 mmol/L Potassium Level 4.1 3.5-5.1 mmol/L Chloride Level 109 H 98-107 mmol/L Carbon Dioxide Level 25 20-31 mmol/L Anion Gap 7 5-15 Blood Urea Nitrogen 12 9-23 mg/dL Creatinine 0.79 0.550-1.02 mg/dL Glomerular Filtration Rate Calc 97 >90 mL/min BUN/Creatinine Ratio 15.2 10.0-20.0 Serum Glucose 95 74-106 mg/dL Hemoglobin A1c 5.1 <5.7 % A1C Calcium Level 8.2 L 8.7-10.4 mg/dL Magnesium Level 2.0 1.6-2.6 mg/dL Creatine Kinase 35 34-145 U/L Triglycerides Level 112 < 150 mg/dL Cholesterol Level 144 < 200 mg/dL LDL Cholesterol 93 < 100 mg/dL HDL Cholesterol 31 L 40-59 mg/dL Vitamin B12 Level 565 211-911 pg/mL Vitamin D 25-Hydroxy 48.6 30.0-100 ng/mL Thyroid Stimulating Hormone (TSH) 4.93 H 0.55-4.78 uIU/mL Total Bilirubin 0.3 0.2-1.0 mg/dL Aspartate Amino Transferase (AST) 17 13-40 U/L Alanine Aminotransferase (ALT) 13 7-40 U/L Alkaline Phosphatase 101 46-116 U/L Troponin I High Sensitivity < 3 L </=34 ng/L B-Type Natriuretic Peptide 26.20 0-100 pg/mL Total Protein 6.5 5.7-8.2 g/dL Albumin 3.3 3.2-4.8 g/dL Valproic Acid Level 61.9 50-100 ug/mL Assessment Grand mal seizure Status epileptics Psychogenic seizure, some her seizure attacks could be psychogenic Plan/Recommendation Monitoring Supportive treatment Telemetry Keppra 1500 mg b.i.d., Depakote 750 mg b.i.d. Ativan for seizure breakthrough More recommendation per clinical course Prognosis: Poor This medical document was created using an electronic medical record system with Feedback dictation system. Although this document has been carefully reviewed, there may still be some phonetic and typographical errors. These a reas are purely typographical due to imperfections of the software programs, and do not reflect any compromise in the patient's medical care. Plan discussed with: Patient, Other KANNAN RILEY MD Sep 15, 2025 22:48
[2025-09-16] VITALS (8 sets, daily range): BP systolic 82–114; BP diastolic 61–82; PULSE 74–87; RESP 14–20; TEMP 96.8–98.5; O2SAT 92–97
[2025-09-16] MEDS: levETIRAcetam 500 MG TAB PO SCH (09:19)
--- NOTE | 2025-09-16 13:07 | DVH ---
CLINICAL INDICATION: broken leg TECHNIQUE: XY L TIB FIB XRAY Comparison: XY L ANKLE 3 VIEW on DOS: 07/17/25, XY L TIB FIB XRAY on DOS: 07/17/25, XY L KNEE 3V XRAY on DOS: 07/17/25 FINDINGS: XY L TIB FIB XRAY on DOS Bones: Intramedullary jean-claude and screw fixation of the tibia and distal fibula. Healing fractures of the proximal and distal tibia and fibula. No acute fracture or dislocation. Joints: Unremarkable Soft tissues: Diffuse soft-tissue swelling. IMPRESSION: 1. Intramedullary jean-claude and screw fixation of the tibia and distal fibula. 2. Healing fractures of the proximal and distal tibia and fibula.
--- NOTE | 2025-09-16 13:30 | DVHPN2 ---
Subjective No further seizures Reviewed: H&P Changes from previous H/P or p: No Changes Eyes: No Pain, No Vision change, No Conjunctivae inflammation, No Eyelid inflammation, No Other, No Redness ENT: No Ear pain, No Ear discharge, No Nose pain, No Nose discharge, No Nose congestion, No Mouth pain, No Mouth swelling, No Throat pain, No Throat swelling, No Other Cardiovascular: No Chest Pain, No Palpitations, No Orthopnea, No Paroxysmal Noc. Dyspnea, No Edema, No Lt Headedness, No Other Respiratory: No Cough, No Dry, No Shortness of breath, No SOB with excertion, No Wheezing, No Hemoptysis, No Pleuritic Pain, No Sputum, No Other Gastrointestinal: No Nausea, No Vomiting, No Abdominal Pain, No Diarrhea, No Constipation, No Melena, No Hematochezia, No Other Genitourinary: No Dysuria, No Frequency, No Incontinence, No Hematuria, No Retention, No Other Musculoskeletal: other (Gait instability); No neck pain, No shoulder pain, No arm pain, No back pain, No hand pain, No leg pain, No foot pain Skin: No Rash, No Lesions, No Jaundice, No Bruising; Other (Left ankle surgical scar audra) Objective Vitals Vital Signs Date Time Temp Pulse Resp B/P (MAP) Pulse Ox O2 Delivery O2 Flow Rate FiO2 09/16/25 09:00 98.3 82 18 114/82 (93) 94 98.3 09/15/25 20:00 Room Air* 0 97 21 Intake/Output Intake and Output 09/16/25 07:00 Intake Total 100 ml Balance 100 ml Intake Oral 100 ml # Voids 6 # Bowel Movements 1 General Appearance: Alert, Oriented X3 HEENT: Atraumatic Lungs: Clear to auscultation Cardiovascular: Regular rate, Normal S1 Abdomen: Normal bowel sounds Medications Current Medications Medications Dose Ordered Sig/Chayo Route Start Time Stop Time Status Last Admin Dose Admin Sodium Chloride 1,000 ml @ 120 mls/hr Q8H20M IV 09/14/25 05:15 09/15/25 21:57 120 MLS/HR Nitroglycerin 0.4 mg Q5MINP PRN SL 09/14/25 05:15 Morphine Sulfate 2 mg Q30M PRN IV 09/14/25 05:15 Pantoprazole Sodium 40 mg DAILY@0600 PO 09/14/25 06:00 09/16/25 05:10 40 MG Lorazepam 1 mg Q5MINP PRN IV 09/14/25 22:00 09/15/25 15:23 1 MG Divalproex Sodium 750 mg BID PO 09/16/25 10:00 09/16/25 09:18 750 MG Levetiracetam 1,500 mg BID PO 09/16/25 10:00 09/16/25 09:19 1,500 MG Laboratory Results Laboratory Tests 09/14/25 08:33 Urinalysis Test 09/15/25 11:50 Urine Color Colorless (Yellow) Urine Clarity Clear (Clear) Urine pH 6.5 (5.0-9.0) Urine Specific [place] 1.010 (1.001-1.035) Urine Protein Negative (Negative) Urine Ketones Negative (Negative) Urine Blood Negative /uL (Negative) Urine Nitrite Negative (Negative) Urine Bilirubin Negative (Negative) Urine Urobilinogen Normal mg/dL (Negative) Urine Leukocyte Esterase 2+ /uL (Negative) Urine RBC 1 /hpf (0 - 4) Urine Microscopic WBC 10 /HPF (0-5) H Urine Squamous Epithelial Cells Few /hpf (<5) Urine Bacteria None seen /hpf (None Seen) Urine Glucose Normal mg/dL (Normal) Assessment/Plan Assessment/Plan Breakthrough seizures History of the epilepsy In ER patient received NSS, levetiracetam. EKG: sinus rhythm, heart rate 84, QTC 483 CXR: Cardiomegaly with moderate pulmonary vascular congestion. valproic acid level is 61.9 levetiracetam level pending Consult neurology>started back on keppra and divalproex Anemia of chronic disease Hemoglobin 11.6, HCT 35.9 MCV 89 point, RDW 14.8 Hypokalemia position 3.4, supplemented BMP Bipolar disease Depression Sertraline Trazodone Morbid obesity, BMI 35.6 Lifestyle modification Plan discussed with: Patient My Orders Orders - NELA HERNANDEZ MD Procedure Category Date Status Time L Tib Fib Xray XY 09/16/25 Resulted 12:22 Date of Service: Sep 16, 2025 Billing Provider: NELA HERNANDEZ MD Common Visit Codes: [id number] INP/OBS CARE(HIGH) NELA HERNANDEZ MD Sep 16, 2025 13:30
--- NOTE | 2025-09-16 20:42 | DVHPN2 ---
Progress Note - Dictate Date Seen: Sep 16, 2025 Medical Necessity Reason Pt with a Central, PICC or Fol: No Subjective Ms. Rivas is a 40 years old right-handed female with a history of seizure disorder, bipolar disorder, hypothyroidism, she was brought to the [facility] on 09/14/2025 with a chief complaint of seizure activity. I saw her on 05/09/2025 for seizure I have seen the patient, this is extremely difficult follow-up, she was watching videos on her cell phone in the bed, but not friendly to me, he only tells me that she has seizure every day at home but she answers "I do not know" to the rest questions, and she did not accept any of my suggestion about obtain her seizure symptoms and frequency from her staff member. Nurse reported atypical features during the seizure activity, such as moving the arms up and down during the seizure attacks Depakote 09/14/2025: 61.9 UDS, 09/15/2025: Negative Urinalysis, 09/15/2025: WBC: 10, urine leukocyte esterase: 2+ CBC, 09/14/2025: Unremarkable BMP, 09/14/2025: Unremarkable HGB A1c, 09/14/2025: 5.1 Fever function tests, 09/14/2025: Unremarkable TG/HDL/LDL/HDL, 09/14/2025: 112/144/93/31 Vitamin B12, 09/14/25: 565 TSH, 09/14/2025: 4093 CT head, 04/21/2025: No acute intracranial abnormality CT head, 09/14/2025: 1. No CT evidence of acute intracranial abnormality. 2. Mild soft tissue swelling/possible hematoma in the posterior scalp. vital signs Vital Sign Date Time Temp Pulse Resp B/P (MAP) Pulse Ox O2 Delivery O2 Flow Rate FiO2 09/16/25 16:36 97.3 87 20 110/79 (89) 96 97.3 09/16/25 08:00 Room Air* 0 97 21 Total Intake and Output 09/15/25 09/15/25 09/16/25 15:00 23:00 07:00 Intake Total 100 ml 0 ml Balance 100 ml 0 ml medications Current Medications Medications Dose Ordered Sig/Chayo Route Start Time Stop Time Status Last Admin Dose Admin Sodium Chloride 1,000 ml @ 120 mls/hr Q8H20M IV 09/14/25 05:15 09/16/25 15:59 120 MLS/HR Nitroglycerin 0.4 mg Q5MINP PRN SL 09/14/25 05:15 Morphine Sulfate 2 mg Q30M PRN IV 09/14/25 05:15 Pantoprazole Sodium 40 mg DAILY@0600 PO 09/14/25 06:00 09/16/25 05:10 40 MG Lorazepam 1 mg Q5MINP PRN IV 09/14/25 22:00 09/15/25 15:23 1 MG Divalproex Sodium 750 mg BID PO 09/16/25 10:00 09/16/25 09:18 750 MG Levetiracetam 1,500 mg BID PO 09/16/25 10:00 09/16/25 09:19 1,500 MG objective PE on 09/15/25 General: the patient is well developed and nourished. No acute distress. MENTAL STATUS: Awake and alert. Oriented to person, place, time and general circumstances. Able to give personal history. SPEECH, LANGUAGE, HIGHER CORTICAL FUNCTION: no aphasia or dysathria. CRANIAL NERVES: #2: Intact visual jiménez to confrontation. The optic discs were sharp. #3,4,6: Pupils are equal, round and reactive. EOMs full and conjugate. No nystagmus. #5: Facial sensation intact in all three divisions bilaterally. Mandibular strength intact. #7: Facial muscles symmetrical and strength intact. #8: Hearing grossly normal to voice. #9,10: Uvula and soft palate rise in the midline. Swallow and voice are normal. #11: Trapezius and sternomastoid strength intact bilaterally. #12: Tongue midline. No fasciculations or atrophy. SENSATION: Sensation to touch and pinprick is normal. MOTOR: Normal tone in the upper and lower extremity. Normal muscle bulk. No fasciculations. No abnormal movements or posturing. Muscle strength of the major groups in the upper extremities is 5/5. Muscle strength of the major groups in the lower extremities is 5/5. REFLEXES: Deep tendon reflexes normal and symmetrical. No pathological reflexes. CEREBELLAR/COORDINATION: Finger to nose is normal bilaterally. GAIT/STATION: deferred laboratory and microbiology Laboratory Tests 09/14/25 08:33 Test 12/9/25 08:33 Range/Units Serum Glucose 95 74-106 mg/dL Problem List Grand mal seizure Status epileptics Psychogenic seizure: some her seizure attacks could be psychogenic Assessment/Plan Monitoring Supportive treatment Telemetry Keppra 1500 mg b.i.d., Depakote 750 mg b.i.d. Ativan for seizure breakthrough The patient is not cooperative and unfriendly, neurologic can not provide more offer, and will sign off. Thank for referring This medical document was created using an electronic medical record system with Robin dictation system. Although this document has been carefully reviewed, there may still be some phonetic and typographical errors. These areas are purely typographical due to imperfections of the software programs, and do not reflect any compromise in the patient's medical care.Grand mal seizure Status epileptics Psychogenic seizure, some her seizure attacks could be psychogenic Prognosis poor Plan discussed with: Patient, Other Total Time (mins): 35 KANNAN RILEY MD Sep 16, 2025 20:42
[2025-09-17] VITALS (7 sets, daily range): BP systolic 95–122; BP diastolic 63–90; PULSE 59–83; RESP 16–20; TEMP 98–98.5; O2SAT 92–96
--- NOTE | 2025-09-17 17:09 | DVHDS2 ---
Discharge Summary Date of Admission Sep 14, 2025 at 05:08 Date of Discharge: Sep 17, 2025 Labs/Diagnostic Data: Laboratory Results Test 09/15/25 11:50 09/14/25 08:33 09/14/25 02:30 Urine Color Colorless (Yellow) Urine Clarity Clear (Clear) Urine pH 6.5 (5.0-9.0) Urine Specific [place] 1.010 (1.001-1.035) Urine Protein Negative (Negative) Urine Ketones Negative (Negative) Urine Blood Negative /uL (Negative) Urine Nitrite Negative (Negative) Urine Bilirubin Negative (Negative) Urine Urobilinogen Normal mg/dL (Negative) Urine Leukocyte Esterase 2+ /uL (Negative) Urine RBC 1 /hpf (0 - 4) Urine Microscopic WBC 10 /HPF (0-5) Urine Squamous Epithelial Cells Few /hpf (<5) Urine Bacteria None seen /hpf (None Seen) Urine Glucose Normal mg/dL (Normal) Urine Opiates Screen Neg (NEGATIVE) Urine Fentanyl Screen Neg (NEGATIVE) Urine Barbiturates Screen Neg (NEGATIVE) Urine Phencyclidine Screen Neg (NEGATIVE) Urine Amphetamines Screen Neg (NEGATIVE) Urine Benzodiazepines Screen Neg (NEGATIVE) Urine Cocaine Screen Neg (NEGATIVE) Urine Cannabinoids Screen Neg (NEGATIVE) White Blood Count 6.4 10^3/uL (4.4-10.8) Red Blood Count 4.32 10^6/uL (4.0-5.20) Hemoglobin 12.4 g/dL (12.2-16.2) Hematocrit 38.7 % (36.0-46.0) Mean Corpuscular Volume 89.7 fL (80.0-100.0) Mean Corpuscular Hemoglobin 28.7 pg (28.0-32.0) Mean Corpuscular Hemoglobin Concent 31.9 g/dL (32.0-36.0) Red Cell Distribution Width 14.7 % (11.8-14.3) Platelet Count 155 10^3/uL (140-450) Mean Platelet Volume 7.8 fL (6.9-10.8) Neutrophils (%) (Auto) 42.5 % (37.0-80.0) Lymphocytes (%) (Auto) 46.9 % (10.0-50.0) Monocytes (%) (Auto) 10.5 % (0.0-12.0) Eosinophils (%) (Auto) 0.0 % (0.0-7.0) Basophils (%) (Auto) 0.1 % (0.0-2.0) Neutrophils # (Auto) 2.7 10 ^3/uL (1.6-8.6) Lymphocytes # (Auto) 3.0 10 ^3/uL (0.4-5.4) Monocytes # (Auto) 0.7 10 ^3/uL (0-1.3) Eosinophils # (Auto) 0 10 ^3/uL (0-0.8) Basophils # (Auto) 0 10 ^3/uL (0-0.2) Nucleated Red Blood Cells 0.2 % Sodium Level 141 mmol/L (136-145) Potassium Level 4.1 mmol/L (3.5-5.1) Chloride Level 109 mmol/L (98-107) Carbon Dioxide Level 25 mmol/L (20-31) Anion Gap 7 (5-15) Blood Urea Nitrogen 12 mg/dL (9-23) Creatinine 0.79 mg/dL (0.550-1.02) Glomerular Filtration Rate Calc 97 mL/min (>90) BUN/Creatinine Ratio 15.2 (10.0-20.0) Serum Glucose 95 mg/dL (74-106) Hemoglobin A1c 5.1 % A1C (<5.7) Calcium Level 8.2 mg/dL (8.7-10.4) Magnesium Level 2.0 mg/dL (1.6-2.6) Creatine Kinase 35 U/L (34-145) Triglycerides Level 112 mg/dL (< 150) Cholesterol Level 144 mg/dL (< 200) LDL Cholesterol 93 mg/dL (< 100) HDL Cholesterol 31 mg/dL (40-59) Vitamin B12 Level 565 pg/mL (211-911) Vitamin D 25-Hydroxy 48.6 ng/mL (30.0-100) Thyroid Stimulating Hormone (TSH) 4.93 uIU/mL (0.55-4.78) Total Bilirubin 0.3 mg/dL (0.2-1.0) Aspartate Amino Transferase (AST) 17 U/L (13-40) Alanine Aminotransferase (ALT) 13 U/L (7-40) Alkaline Phosphatase 101 U/L (46-116) Troponin I High Sensitivity < 3 ng/L (</=34) B-Type Natriuretic Peptide 26.20 pg/mL (0-100) Total Protein 6.5 g/dL (5.7-8.2) Albumin 3.3 g/dL (3.2-4.8) Valproic Acid Level 61.9 ug/mL (50-100) Other Laboratory Tests 09/14/25 08:33 Brief Hx & Hospital Course: 40-year-old female with past medical history of seizures, bipolar disorder, and hypothyroidism who [facility] a complaint of breakthrough seizure. Record obtain from chart review, patient having episode of seizure at 10:00 p.m. day before admission and [facility] staff call 911 on brought patient to hospital. Patient currently AO x3-4. Denies any trauma, loss of consciousness or any other acute distress. Neurology consulted on recommended continue seizure medication. As per patient, [facility] staff provided antiseizure medication twice a day. Compliance with medication. Denies any fever, SOB, dysuria, or any acute distress. Patient had left ankle surgery recently and need walker for ambulation. Had not had any seizures while in the hospital. 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 Patient was counseled about treatment plan, medications, possible side effects, patientverbalized understanding. All questions were answered to the best of my ability. This discharge took greater then 30 minutes in planning, reviewing documentation, counseling the patient, and discussing with other team members." ASSESSMENT ASSESSMENT Assessment acute seizures Date of Service: Sep 17, 2025 Billing Provider: NELA HERNANDEZ MD Common Visit Codes: 66176-DBS/OBS DISCH DAY >30min NELA HERNANDEZ MD Sep 17, 2025 17:09
== END 2025-09-17 21:38 | disposition home or self-care (01) | DRG 101 ==
LOC: EDBD 01:21 → ER 01:21 → OVERFLOW 05:08 → TELE-WESTW 22:16
PROVIDERS: ADMIT Hospitalist; ATTEND Hospitalist
DX: G40.401 Other generalized epilepsy and epileptic syndromes, not intractable, with status epilepticus (principal); D63.8 Anemia in other chronic diseases classified elsewhere; E66.01 Morbid (severe) obesity due to excess calories; E03.9 Hypothyroidism, unspecified; F31.9 Bipolar disorder, unspecified; E87.6 Hypokalemia; Z68.35 Body mass index [BMI] 35.0-35.9, adult; Z80.1 Family history of malignant neoplasm of trachea, bronchus and lung
CPT/HCPCS: 36415; 70450; 71045; 73590; 80048; 80053; 80061; 80164; 80307; 81001; 82306; 82542; 82550; 82607; 83036; 83735; 83880; 84443; 84484; 85025; 93005; G0378